=== PATIENT | male | born 1940 | race Hispanic/Latino ===

== ENCOUNTER 2020-07-27 11:47 | Inpatient (IN) | payer MEDICARE ==
[~2020-07-27] VITALS: Ht 172.7 cm; Wt 89.4 kg
[2020-07-27] MEDS ORDERED: FUROSEMIDE INJ 10 MG/ML 4 ML VIAL IV ONE (12:15)
[2020-07-27] MEDS ORDERED: ASPIRIN 81 MG CHEW TAB PO ONE (12:15)
[2020-07-27 12:25] LABS: BASOPHILS % 0.6 % (0.0-1.0); EOSINOPHILS # (AUTO) 0.2 (0.0-0.4); EOSINOPHILS % 2.3 % (0.0-6.0); HEMATOCRIT 28.7 % (38.2-49.6); HEMOGLOBIN 8.8 g/dL (14.0-18.0); LYMPHOCYTES # (AUTO) 0.8 (1.0-3.2); LYMPHOCYTES % 11.9 % (18.0-39.1); MEAN CORPUSCULAR HEMOGLOBIN 29.6 pg (28-32); MEAN CORPUSCULAR HGB CONC 30.7 g/dL (31-35); MEAN CORPUSCULAR VOLUME 96.6 fL (81-99); MONOCYTES # (AUTO) 0.6 (0.2-0.8); MONOCYTES % 8.3 % (4.4-11.3); NEUTROPHILS % 75.5 % (38.7-80.0); PLATELET COUNT 214 x10e3/uL (140-360); RED BLOOD COUNT 2.97 x10e6/uL (4.3-5.7); RED CELL DISTRIBUTION WIDTH 13.5 % (11.7-14.4)
[2020-07-27] MEDS ORDERED: AMLODIPINE BESY10 MG PO (12:25)
[2020-07-27] MEDS ORDERED: LOW DOSE ASPIRI81 MG PO (12:25)
[2020-07-27] MEDS ORDERED: CINNAMON500 MG PO (12:25)
[2020-07-27] MEDS ORDERED: OMEGA-31000 MG PO (12:25)
[2020-07-27] MEDS ORDERED: MICARDIS40 MG PO (12:25)
[2020-07-27] MEDS ORDERED: HYDRALAZINE HCL25 MG PO (12:25)
[2020-07-27] MEDS ORDERED: GLIPIZIDE ER5 MG PO (12:25)
[2020-07-27] MEDS ORDERED: ATORVASTATIN CA10 MG PO (12:25)
[2020-07-27 12:42] LABS: ALBUMIN 3.5 g/dL (3.5-5.0); ALBUMIN/GLOBULIN RATIO 1.3 (0.8-2.0); ANION GAP 13.8 mmol/L (8-16); CALCIUM 8.1 mg/dL (8.4-10.2); CREATININE, SERUM 3.54 mg/dL (0.72-1.25); POTASSIUM 4.8 mmol/L (3.5-5.1)
[2020-07-27 14:11] LABS: CREATINE KINASE MB 3.3 ng/mL (0-5.0)
[2020-07-27] MEDS: FUROSEMIDE INJ 10 MG/ML 4 ML VIAL IV SCH (21:07)
[2020-07-27 21:44] LABS: CREATINE KINASE MB 3.7 ng/mL (0-5.0)
[2020-07-27 23:45] VITALS: BP 167/82
[2020-07-28] VITALS (7 sets, daily range): BP systolic 134–169; BP diastolic 63–82
[2020-07-28 05:55] LABS: BASOPHILS % 0.7 % (0.0-1.0); EOSINOPHILS # (AUTO) 0.2 (0.0-0.4); EOSINOPHILS % 2.6 % (0.0-6.0); HEMATOCRIT 27.6 % (38.2-49.6); HEMOGLOBIN 8.6 g/dL (14.0-18.0); LYMPHOCYTES # (AUTO) 0.9 (1.0-3.2); LYMPHOCYTES % 14.6 % (18.0-39.1); MEAN CORPUSCULAR HEMOGLOBIN 29.9 pg (28-32); MEAN CORPUSCULAR HGB CONC 31.2 g/dL (31-35); MEAN CORPUSCULAR VOLUME 95.8 fL (81-99); MONOCYTES # (AUTO) 0.8 (0.2-0.8); MONOCYTES % 12.3 % (4.4-11.3); NEUTROPHILS # (AUTO) 4.3 (2.1-6.9); NEUTROPHILS % 69.5 % (38.7-80.0); PLATELET COUNT 205 x10e3/uL (140-360); RED BLOOD COUNT 2.88 x10e6/uL (4.3-5.7); RED CELL DISTRIBUTION WIDTH 13.4 % (11.7-14.4)
[2020-07-28 06:17] LABS: ALBUMIN 3.3 g/dL (3.5-5.0); ALBUMIN/GLOBULIN RATIO 1.2 (0.8-2.0); ANION GAP 13.4 mmol/L (8-16); CALCIUM 8.1 mg/dL (8.4-10.2); CHOL/HDL RATIO 2.2 (3.9-4.7); CREATININE, SERUM 3.22 mg/dL (0.72-1.25); POTASSIUM 4.4 mmol/L (3.5-5.1)
[2020-07-28 06:39] LABS: THYROID STIMULATING HORMONE 0.914 uIU/mL (0.350-4.940)
[2020-07-28 06:41] LABS: CREATINE KINASE MB 3.4 ng/mL (0-5.0)
[2020-07-28] MEDS: FUROSEMIDE INJ 10 MG/ML 4 ML VIAL IV SCH ×2 (09:21→17:11)
[2020-07-28] MEDS: ASPIRIN 81 MG ENTERIC COATED PO SCH (10:00)
[2020-07-28] MEDS: METOPROLOL TARTRATE 25 MG TAB PO SCH ×2 (10:00→17:12)
[2020-07-28] MEDS ORDERED: DEXTROSE 50% SYRINGE 50 ML IV PRN (11:30)
[2020-07-28] MEDS ORDERED: ATORVASTATIN 10 MG TAB PO SCH (21:00)
[2020-07-29] VITALS: BP 148/77
[2020-07-29 04:00] VITALS: BP 158/73
[2020-07-29 05:33] LABS: BASOPHILS % 0.7 % (0.0-1.0); EOSINOPHILS # (AUTO) 0.2 (0.0-0.4); EOSINOPHILS % 3.3 % (0.0-6.0); HEMATOCRIT 25.9 % (38.2-49.6); HEMOGLOBIN 8.1 g/dL (14.0-18.0); LYMPHOCYTES # (AUTO) 1.1 (1.0-3.2); LYMPHOCYTES % 18.9 % (18.0-39.1); MEAN CORPUSCULAR HEMOGLOBIN 29.7 pg (28-32); MEAN CORPUSCULAR HGB CONC 31.3 g/dL (31-35); MEAN CORPUSCULAR VOLUME 94.9 fL (81-99); MONOCYTES # (AUTO) 0.7 (0.2-0.8); MONOCYTES % 12.5 % (4.4-11.3); NEUTROPHILS # (AUTO) 3.7 (2.1-6.9); NEUTROPHILS % 64.4 % (38.7-80.0); PLATELET COUNT 195 x10e3/uL (140-360); RED BLOOD COUNT 2.73 x10e6/uL (4.3-5.7); RED CELL DISTRIBUTION WIDTH 13.3 % (11.7-14.4)
[2020-07-29 05:50] LABS: ALBUMIN/GLOBULIN RATIO 1.2 (0.8-2.0); ANION GAP 12.2 mmol/L (8-16); CALCIUM 7.9 mg/dL (8.4-10.2); CREATININE, SERUM 3.32 mg/dL (0.72-1.25); POTASSIUM 4.2 mmol/L (3.5-5.1)
[2020-07-29 07:32] VITALS: BP 168/73
[2020-07-29 07:42] VITALS: BP 168/73
[2020-07-29] MEDS: METOPROLOL TARTRATE 25 MG TAB PO SCH (10:20)
[2020-07-29] MEDS: FUROSEMIDE INJ 10 MG/ML 4 ML VIAL IV SCH (10:20)
[2020-07-29] MEDS: ASPIRIN 81 MG ENTERIC COATED PO SCH (10:20)
[2020-07-29 11:37] VITALS: BP 137/101
[2020-07-29] MEDS ORDERED: HYDRALAZINE HCL 25 MG TAB PO SCH (17:00)
== END 2020-07-29 13:20 | disposition home or self-care (01) | DRG 291 ==
LOC: ER 12:02 → ERHOLD 15:04 → MED/SURG 23:38
DX: I13.0 Hypertensive heart and chronic kidney disease with heart failure and stage 1 through stage 4 chronic kidney disease, or unspecified chronic kidney disease (principal); I50.33 Acute on chronic diastolic (congestive) heart failure; N17.9 Acute kidney failure, unspecified; N18.9 Chronic kidney disease, unspecified; E11.22 Type 2 diabetes mellitus with diabetic chronic kidney disease; N18.30 Chronic kidney disease, stage 3 unspecified; E11.21 Type 2 diabetes mellitus with diabetic nephropathy; I25.10 Atherosclerotic heart disease of native coronary artery without angina pectoris; Z95.1 Presence of aortocoronary bypass graft; Z20.822 Contact with and (suspected) exposure to COVID-19
CPT/HCPCS: 36415; 71045; 80053; 80061; 82550; 82553; 82948; 83880; 84443; 84484; 85025; 93005; 93306; 99285; J1940; U0002

== ENCOUNTER 2021-01-03 14:59 | Inpatient (IN) | payer MEDICARE, OTHER ==
[~2021-01-03] VITALS: Ht 172.7 cm; Wt 89.4 kg
[~2021-01-03 14:59] MED LIST: AMLODIPINE BESY10 MG PO; ATORVASTATIN CA10 MG PO; CINNAMON500 MG PO; GLIPIZIDE ER5 MG PO; HYDRALAZINE HCL25 MG PO; LOW DOSE ASPIRI81 MG PO; MICARDIS40 MG PO; OMEGA-31000 MG PO
[2021-01-03] MEDS ORDERED: DEXTROSE 50% SYRINGE 50 ML IV STA (15:16)
[2021-01-03] MEDS ORDERED: DEXTROSE 50% SYRINGE 50 ML IV ONE (15:25)
[2021-01-03] MEDS ORDERED: DEXTROSE 5% 1,000 ML IV ONE (15:30)
[2021-01-03 15:32] LABS: BASOPHILS % 0.5 % (0.0-1.0); EOSINOPHILS % 0.3 % (0.0-6.0); HEMATOCRIT 28.8 % (38.2-49.6); HEMOGLOBIN 8.8 g/dL (14.0-18.0); LYMPHOCYTES # (AUTO) 0.4 (1.0-3.2); LYMPHOCYTES % 6.8 % (18.0-39.1); MEAN CORPUSCULAR HEMOGLOBIN 27.9 pg (28-32); MEAN CORPUSCULAR HGB CONC 30.6 g/dL (31-35); MEAN CORPUSCULAR VOLUME 91.4 fL (81-99); MONOCYTES # (AUTO) 0.5 (0.2-0.8); MONOCYTES % 8.6 % (4.4-11.3); NEUTROPHILS # (AUTO) 4.8 (2.1-6.9); NEUTROPHILS % 83.1 % (38.7-80.0); PLATELET COUNT 201 x10e3/uL (140-360); RED BLOOD COUNT 3.15 x10e6/uL (4.3-5.7)
[2021-01-03] MEDS: OCTREOTIDE ACETATE 0.05 MG/ML AMP SQ SCH ×2 (15:38→18:00)
[2021-01-03 15:47] LABS: ALBUMIN 4.1 g/dL (3.5-5.0); ALBUMIN/GLOBULIN RATIO 1.5 (0.8-2.0); ANION GAP 16.8 mmol/L (8-16); CALCIUM 8.4 mg/dL (8.4-10.2); CREATININE, SERUM 3.67 mg/dL (0.72-1.25); MAGNESIUM 2.2 MG/DL (1.3-2.1); POTASSIUM 3.8 mmol/L (3.5-5.1)
[2021-01-03 15:53] LABS: CREATINE KINASE MB 4.5 ng/mL (0-5.0)
[2021-01-03 16:09] LABS: INR 1.06; PROTHROMBIN TIME 14.4 seconds (11.9-14.5)
[2021-01-03 16:10] LABS: PARTIAL THROMBOPLASTIN TIME 36.4 seconds (23.8-35.5)
[2021-01-03 16:59] LABS: CLARITY,URINE CLEAR (CLEAR); COLOR,URINE YELLOW (YELLOW); KETONES,URINE NEGATIVE (NEGATIVE); LEUKOCYTE ESTERASE ,URINE NEGATIVE (NEGATIVE); NITRITE,URINE NEGATIVE (NEGATIVE); PROTEIN,URINE DIPSTICK 2+ (NEGATIVE); URINE UROBILINOGEN 0.2 mg/dL (0.2 - 1)
[2021-01-03 17:08] LABS: BACTERIA,URINE MODERATE /HPF; EPITHELIAL CELLS,URINE FEW /LPF; WBC,URINE (MAN) 0-5 /HPF (0-5)
[2021-01-03] MEDS ORDERED: DEXTROSE 50% SYRINGE 50 ML IV PRN (17:30)
[2021-01-03] MEDS ORDERED: ONDANSETRON HCL INJ 2MG/ML 2ML 2 MG/ML VIAL IV PRN (17:30)
[2021-01-03] MEDS: FAMOTIDINE 20 MG/2 ML VIAL IV SCH (17:34)
[2021-01-03] MEDS ORDERED: FUROSEMIDE INJ 10 MG/ML 4 ML VIAL IV ONE (19:00)
[2021-01-03 20:04] VITALS: BP 143/78
[2021-01-03] MEDS ORDERED: LASIX40 MG PO (20:52)
[2021-01-04] VITALS (13 sets, daily range): BP systolic 125–162; BP diastolic 61–77
[2021-01-04] MEDS: CEFTRIAXONE 1 GM in SODIUM CHLORIDE 0.9% 50ML 50 ML IV SCH ×2 (00:44→20:30)
[2021-01-04] MEDS: FAMOTIDINE 20 MG/2 ML VIAL IV SCH ×2 (05:17→17:30)
[2021-01-04] MEDS: OCTREOTIDE ACETATE 0.05 MG/ML AMP SQ SCH ×5 (05:17→23:03)
[2021-01-04 05:33] LABS: BASOPHILS % 0.6 % (0.0-1.0); EOSINOPHILS # (AUTO) 0.1 (0.0-0.4); EOSINOPHILS % 1.4 % (0.0-6.0); HEMATOCRIT 25.6 % (38.2-49.6); HEMOGLOBIN 8.1 g/dL (14.0-18.0); LYMPHOCYTES # (AUTO) 0.4 (1.0-3.2); LYMPHOCYTES % 8.4 % (18.0-39.1); MEAN CORPUSCULAR HEMOGLOBIN 29.1 pg (28-32); MEAN CORPUSCULAR HGB CONC 31.6 g/dL (31-35); MEAN CORPUSCULAR VOLUME 92.1 fL (81-99); MONOCYTES # (AUTO) 0.6 (0.2-0.8); MONOCYTES % 10.8 % (4.4-11.3); PLATELET COUNT 178 x10e3/uL (140-360); RED BLOOD COUNT 2.78 x10e6/uL (4.3-5.7); RED CELL DISTRIBUTION WIDTH 13.7 % (11.7-14.4)
[2021-01-04 05:47] LABS: ALBUMIN 3.4 g/dL (3.5-5.0); ALBUMIN/GLOBULIN RATIO 1.3 (0.8-2.0); ANION GAP 12.9 mmol/L (8-16); CREATININE, SERUM 3.68 mg/dL (0.72-1.25); POTASSIUM 3.9 mmol/L (3.5-5.1)
[2021-01-04] MEDS ORDERED: ONDANSETRON HCL 4 MG ORAL DISINTEGRATING TAB PO PRN (08:00)
[2021-01-04] MEDS: AMLODIPINE BESYLATE 10 MG TAB PO SCH (09:00)
[2021-01-04] MEDS: ASPIRIN 81 MG ENTERIC COATED PO SCH (09:00)
[2021-01-04] MEDS: FUROSEMIDE INJ 10 MG/ML 4 ML VIAL IV SCH ×2 (09:00→20:30)
[2021-01-04] MEDS: HYDRALAZINE HCL 25 MG TAB PO SCH ×2 (09:00→17:30)
[2021-01-04 11:56] LABS: CREATINE KINASE MB 3.7 ng/mL (0-5.0)
[2021-01-04] MEDS: ATORVASTATIN 10 MG TAB PO SCH (20:30)
[2021-01-05] VITALS (8 sets, daily range): BP systolic 134–161; BP diastolic 60–75
[2021-01-05 05:08] LABS: BASOPHILS % 0.6 % (0.0-1.0); EOSINOPHILS # (AUTO) 0.1 (0.0-0.4); EOSINOPHILS % 2.3 % (0.0-6.0); HEMATOCRIT 26.3 % (38.2-49.6); LYMPHOCYTES # (AUTO) 0.6 (1.0-3.2); LYMPHOCYTES % 10.9 % (18.0-39.1); MEAN CORPUSCULAR HEMOGLOBIN 28.2 pg (28-32); MEAN CORPUSCULAR HGB CONC 30.4 g/dL (31-35); MEAN CORPUSCULAR VOLUME 92.6 fL (81-99); MONOCYTES # (AUTO) 0.6 (0.2-0.8); MONOCYTES % 10.9 % (4.4-11.3); NEUTROPHILS # (AUTO) 3.9 (2.1-6.9); NEUTROPHILS % 74.9 % (38.7-80.0); PLATELET COUNT 164 x10e3/uL (140-360); RED BLOOD COUNT 2.84 x10e6/uL (4.3-5.7); RED CELL DISTRIBUTION WIDTH 13.6 % (11.7-14.4)
[2021-01-05 05:28] LABS: ALBUMIN 3.4 g/dL (3.5-5.0); ALBUMIN/GLOBULIN RATIO 1.3 (0.8-2.0); ANION GAP 13.4 mmol/L (8-16); CALCIUM 7.7 mg/dL (8.4-10.2); CREATININE, SERUM 3.76 mg/dL (0.72-1.25); POTASSIUM 4.4 mmol/L (3.5-5.1)
[2021-01-05] MEDS: FAMOTIDINE 20 MG/2 ML VIAL IV SCH ×2 (05:43→16:42)
[2021-01-05] MEDS: OCTREOTIDE ACETATE 0.05 MG/ML AMP SQ SCH ×3 (05:43→16:43)
[2021-01-05] MEDS: HYDRALAZINE HCL 25 MG TAB PO SCH ×2 (09:15→16:42)
[2021-01-05] MEDS: FUROSEMIDE INJ 10 MG/ML 4 ML VIAL IV SCH ×2 (09:15→21:19)
[2021-01-05] MEDS: AMLODIPINE BESYLATE 10 MG TAB PO SCH (09:15)
[2021-01-05] MEDS: ASPIRIN 81 MG ENTERIC COATED PO SCH (09:15)
[2021-01-05] MEDS: CEFTRIAXONE 1 GM in SODIUM CHLORIDE 0.9% 50ML 50 ML IV SCH (21:19)
[2021-01-05] MEDS: ATORVASTATIN 10 MG TAB PO SCH (21:19)
[2021-01-06] VITALS (9 sets, daily range): BP systolic 131–157; BP diastolic 63–81
[2021-01-06] MEDS: OCTREOTIDE ACETATE 0.05 MG/ML AMP SQ SCH ×4 (05:07→18:00)
[2021-01-06] MEDS: FAMOTIDINE 20 MG/2 ML VIAL IV SCH ×2 (05:27→16:37)
[2021-01-06] MEDS: ASPIRIN 81 MG ENTERIC COATED PO SCH (09:00)
[2021-01-06] MEDS: FUROSEMIDE INJ 10 MG/ML 4 ML VIAL IV SCH (09:00)
[2021-01-06] MEDS: AMLODIPINE BESYLATE 10 MG TAB PO SCH (09:00)
[2021-01-06] MEDS: HYDRALAZINE HCL 25 MG TAB PO SCH ×2 (09:00→16:37)
[2021-01-06 19:26] LABS: ANION GAP 14.2 mmol/L (8-16); CALCIUM 7.8 mg/dL (8.4-10.2); CREATININE, SERUM 4.17 mg/dL (0.72-1.25); POTASSIUM 4.2 mmol/L (3.5-5.1)
[2021-01-06] MEDS: ATORVASTATIN 10 MG TAB PO SCH (20:51)
[2021-01-06] MEDS: CEFTRIAXONE 1 GM in SODIUM CHLORIDE 0.9% 50ML 50 ML IV SCH (20:51)
[2021-01-07] MEDS: OCTREOTIDE ACETATE 0.05 MG/ML AMP SQ SCH ×3 (01:17→12:00)
[2021-01-07] MEDS: FAMOTIDINE 20 MG/2 ML VIAL IV SCH (05:30)
[2021-01-07 05:34] LABS: BASOPHILS % 0.3 % (0.0-1.0); EOSINOPHILS % 0.2 % (0.0-6.0); HEMATOCRIT 25.1 % (38.2-49.6); HEMOGLOBIN 7.7 g/dL (14.0-18.0); LYMPHOCYTES # (AUTO) 0.8 (1.0-3.2); MEAN CORPUSCULAR HEMOGLOBIN 27.8 pg (28-32); MEAN CORPUSCULAR HGB CONC 30.7 g/dL (31-35); MEAN CORPUSCULAR VOLUME 90.6 fL (81-99); MONOCYTES # (AUTO) 0.7 (0.2-0.8); MONOCYTES % 7.2 % (4.4-11.3); NEUTROPHILS # (AUTO) 8.2 (2.1-6.9); NEUTROPHILS % 83.9 % (38.7-80.0); PLATELET COUNT 161 x10e3/uL (140-360); RED BLOOD COUNT 2.77 x10e6/uL (4.3-5.7); RED CELL DISTRIBUTION WIDTH 13.7 % (11.7-14.4)
[2021-01-07] MEDS ORDERED: FUROSEMIDE 40 MG TAB PO SCH (06:00)
[2021-01-07 06:02] LABS: ALBUMIN 3.4 g/dL (3.5-5.0); ALBUMIN/GLOBULIN RATIO 1.3 (0.8-2.0); ANION GAP 15.4 mmol/L (8-16); CALCIUM 7.7 mg/dL (8.4-10.2); CREATININE, SERUM 4.23 mg/dL (0.72-1.25); POTASSIUM 4.4 mmol/L (3.5-5.1)
[2021-01-07 06:15] VITALS: BP 130/82
[2021-01-07 07:55] VITALS: BP 113/58
[2021-01-07 08:37] VITALS: BP 113/58
[2021-01-07] MEDS: AMLODIPINE BESYLATE 10 MG TAB PO SCH (09:00)
[2021-01-07] MEDS: ASPIRIN 81 MG ENTERIC COATED PO SCH (09:00)
[2021-01-07] MEDS: HYDRALAZINE HCL 25 MG TAB PO SCH (09:00)
[2021-01-07 11:30] VITALS: BP 111/57
[2021-01-07] MEDS ORDERED: GLIPIZIDE5 MG PO (12:57)
[2021-01-07] MEDS ORDERED: LASIX40 MG PO (15:23)
== END 2021-01-07 15:34 | disposition home or self-care (01) | DRG 291 ==
LOC: ER 16:32 → ERHOLD 17:22 → MED/SURG2 20:07
PROVIDERS: ADMIT Internal Medicine; ATTEND Internal Medicine
DX: I13.2 Hypertensive heart and chronic kidney disease with heart failure and with stage 5 chronic kidney disease, or end stage renal disease (principal); I50.33 Acute on chronic diastolic (congestive) heart failure; N18.5 Chronic kidney disease, stage 5; N17.9 Acute kidney failure, unspecified; D68.9 Coagulation defect, unspecified; E11.22 Type 2 diabetes mellitus with diabetic chronic kidney disease; E11.649 Type 2 diabetes mellitus with hypoglycemia without coma; Z20.822 Contact with and (suspected) exposure to COVID-19; E78.5 Hyperlipidemia, unspecified; R33.9 Retention of urine, unspecified; N05.9 Unspecified nephritic syndrome with unspecified morphologic changes; R31.9 Hematuria, unspecified; Z95.1 Presence of aortocoronary bypass graft; I27.20 Pulmonary hypertension, unspecified; W19.XXXA Unspecified fall, initial encounter; Y92.239 Unspecified place in hospital as the place of occurrence of the external cause; T38.3X5A Adverse effect of insulin and oral hypoglycemic [antidiabetic] drugs, initial encounter
CPT/HCPCS: 36415; 70450; 71045; 72125; 76770; 80048; 80053; 81001; 82550; 82553; 82948; 83605; 83735; 83880; 84484; 85025; 85610; 85730; 87040; 87086; 93005; 97139; 99251; 99284; J0696; J1940; J2354; J7070; J7799; U0002

== ENCOUNTER 2021-03-27 21:19 | Inpatient (IN) | payer MEDICARE ==
[~2021-03-27] VITALS: Ht 172.7 cm; Wt 89.4 kg
[2021-03-27 19:00] VITALS: BP 124/67
[~2021-03-27 21:19] MED LIST changes: +GLIPIZIDE5 MG PO; +LASIX40 MG PO
[2021-03-27 21:56] LABS: BASOPHILS # (AUTO) 0.1 (0.0-0.1); BASOPHILS % 0.8 % (0.0-1.0); EOSINOPHILS # (AUTO) 0.1 (0.0-0.4); EOSINOPHILS % 2.2 % (0.0-6.0); HEMATOCRIT 23.6 % (38.2-49.6); HEMOGLOBIN 7.4 g/dL (14.0-18.0); LYMPHOCYTES # (AUTO) 1.2 (1.0-3.2); LYMPHOCYTES % 18.5 % (18.0-39.1); MEAN CORPUSCULAR HEMOGLOBIN 28.7 pg (28-32); MEAN CORPUSCULAR HGB CONC 31.4 g/dL (31-35); MEAN CORPUSCULAR VOLUME 91.5 fL (81-99); MONOCYTES # (AUTO) 0.5 (0.2-0.8); MONOCYTES % 8.3 % (4.4-11.3); NEUTROPHILS # (AUTO) 4.5 (2.1-6.9); NEUTROPHILS % 69.9 % (38.7-80.0); PLATELET COUNT 222 x10e3/uL (140-360); RED BLOOD COUNT 2.58 x10e6/uL (4.3-5.7); RED CELL DISTRIBUTION WIDTH 14.6 % (11.7-14.4)
[2021-03-27 22:13] LABS: ALBUMIN/GLOBULIN RATIO 1.4 (0.8-2.0); ANION GAP 24.2 mmol/L (8-16); CALCIUM 8.6 mg/dL (8.4-10.2); CREATINE KINASE MB 3.1 ng/mL (0-5.0); CREATININE, SERUM 5.45 mg/dL (0.72-1.25); POTASSIUM 4.2 mmol/L (3.5-5.1)
[2021-03-27] MEDS ORDERED: SODIUM BICARBONATE 8.4% INJ 50 ML SYR IV STA (22:50)
[2021-03-27] MEDS: FUROSEMIDE INJ 10 MG/ML 4 ML VIAL IV SCH (23:34)
[2021-03-28] VITALS (10 sets, daily range): BP systolic 106–132; BP diastolic 49–64
[2021-03-28] MEDS ORDERED: ALLOPURINOL100 MG PO (01:06)
[2021-03-28] MEDS ORDERED: CALCITRIOL0.25 MCG PO (01:06)
[2021-03-28 08:23] LABS: BASOPHILS % 0.6 % (0.0-1.0); EOSINOPHILS % 1.1 % (0.0-6.0); LYMPHOCYTES # (AUTO) 0.3 (1.0-3.2); LYMPHOCYTES % 9.6 % (18.0-39.1); MEAN CORPUSCULAR HEMOGLOBIN 27.8 pg (28-32); MEAN CORPUSCULAR HGB CONC 30.7 g/dL (31-35); MEAN CORPUSCULAR VOLUME 90.6 fL (81-99); MONOCYTES # (AUTO) 0.3 (0.2-0.8); MONOCYTES % 8.5 % (4.4-11.3); NEUTROPHILS # (AUTO) 2.8 (2.1-6.9); NEUTROPHILS % 79.9 % (38.7-80.0); PLATELET COUNT 182 x10e3/uL (140-360); RED BLOOD COUNT 2.34 x10e6/uL (4.3-5.7); RED CELL DISTRIBUTION WIDTH 14.7 % (11.7-14.4)
[2021-03-28 08:38] LABS: HEMATOCRIT 21.2 % (38.2-49.6); HEMOGLOBIN 6.5 g/dL (14.0-18.0)
[2021-03-28 08:52] LABS: ALBUMIN 3.5 g/dL (3.5-5.0); ALBUMIN/GLOBULIN RATIO 1.4 (0.8-2.0); ANION GAP 17.7 mmol/L (8-16); CALCIUM 8.5 mg/dL (8.4-10.2); CREATININE, SERUM 5.62 mg/dL (0.72-1.25); MAGNESIUM 2.3 MG/DL (1.3-2.1); PHOSPHORUS 5.6 MG/DL (2.3-4.7); POTASSIUM 3.7 mmol/L (3.5-5.1)
[2021-03-28 09:00] LABS: CREATINE KINASE MB 3.3 ng/mL (0-5.0)
[2021-03-28] MEDS: FUROSEMIDE INJ 10 MG/ML 4 ML VIAL IV SCH ×3 (09:00→21:24)
[2021-03-28] MEDS ORDERED: DEXTROSE 50% SYRINGE 50 ML IV PRN (09:45)
[2021-03-28] MEDS ORDERED: SODIUM CHLORIDE 0.9% 250ML 250 ML IV NR (10:15)
[2021-03-28] MEDS: INSULIN REGULAR, HUMAN 100 UNIT/1 ML SQ SCH ×3 (11:30→21:26)
[2021-03-28] MEDS: SODIUM BICARBONATE 650 MG TAB PO SCH ×2 (13:18→18:57)
[2021-03-28 15:32] LABS: INR 1.16
[2021-03-28 15:35] LABS: ABG HCO3 20 mmol/L (22-26); ABG PCO2 34 mmHg (35-45); ABG PH 7.37 (7.35-7.45); ABG PO2 70 mmHg (80-105); ABG TCO2 21
[2021-03-28 15:57] LABS: CREATINE KINASE MB 4.6 ng/mL (0-5.0)
[2021-03-28 16:17] LABS: CHOL/HDL RATIO 2.4 (3.9-4.7)
[2021-03-28 16:36] LABS: FERRITIN 60.67 ng/mL (21.81-274.66)
[2021-03-28] MEDS ORDERED: SODIUM CHLORIDE 0.9% 250ML 250 ML ONE (17:12)
[2021-03-29] VITALS (8 sets, daily range): BP systolic 117–145; BP diastolic 49–72
[2021-03-29 00:15] LABS: CLARITY,URINE CLEAR (CLEAR); COLOR,URINE YELLOW (YELLOW); KETONES,URINE NEGATIVE (NEGATIVE); LEUKOCYTE ESTERASE ,URINE NEGATIVE (NEGATIVE); NITRITE,URINE NEGATIVE (NEGATIVE); PROTEIN,URINE DIPSTICK NEGATIVE (NEGATIVE); URINE UROBILINOGEN 0.2 mg/dL (0.2 - 1)
[2021-03-29 00:21] LABS: BACTERIA,URINE FEW /HPF; EPITHELIAL CELLS,URINE FEW /LPF; RBC,URINE 0-5 /HPF (0-5); WBC,URINE (MAN) 0-5 /HPF (0-5)
[2021-03-29 05:04] LABS: BASOPHILS % 0.6 % (0.0-1.0); EOSINOPHILS # (AUTO) 0.2 (0.0-0.4); EOSINOPHILS % 3.1 % (0.0-6.0); HEMATOCRIT 24.7 % (38.2-49.6); HEMOGLOBIN 8.1 g/dL (14.0-18.0); LYMPHOCYTES # (AUTO) 0.6 (1.0-3.2); LYMPHOCYTES % 12.7 % (18.0-39.1); MEAN CORPUSCULAR HEMOGLOBIN 28.8 pg (28-32); MEAN CORPUSCULAR HGB CONC 32.8 g/dL (31-35); MEAN CORPUSCULAR VOLUME 87.9 fL (81-99); MONOCYTES # (AUTO) 0.5 (0.2-0.8); MONOCYTES % 10.4 % (4.4-11.3); NEUTROPHILS # (AUTO) 3.5 (2.1-6.9); NEUTROPHILS % 72.8 % (38.7-80.0); PLATELET COUNT 189 x10e3/uL (140-360); RED BLOOD COUNT 2.81 x10e6/uL (4.3-5.7); RED CELL DISTRIBUTION WIDTH 14.8 % (11.7-14.4)
[2021-03-29 05:24] LABS: ALBUMIN 3.5 g/dL (3.5-5.0); ALBUMIN/GLOBULIN RATIO 1.3 (0.8-2.0); ANION GAP 17.9 mmol/L (8-16); CALCIUM 8.3 mg/dL (8.4-10.2); CREATININE, SERUM 5.5 mg/dL (0.72-1.25); POTASSIUM 3.9 mmol/L (3.5-5.1)
[2021-03-29] MEDS: INSULIN REGULAR, HUMAN 100 UNIT/1 ML SQ SCH ×4 (07:30→22:24)
[2021-03-29] MEDS ORDERED: METOLAZONE 5 MG TAB PO ONE (09:00)
[2021-03-29] MEDS: SODIUM BICARBONATE 650 MG TAB PO SCH ×2 (09:53→17:45)
[2021-03-29] MEDS: FUROSEMIDE INJ 10 MG/ML 4 ML VIAL IV SCH ×2 (09:53→22:31)
[2021-03-29 14:50] LABS: CREATININE,URINE RANDOM 49.41 mg/dL (63-166); TOTAL PROTEIN, URINE 12.3 mg/dL (1-14)
[2021-03-29] MEDS ORDERED: TELMISARTAN 40 MG TAB PO SCH (17:00)
[2021-03-29] MEDS: HYDRALAZINE HCL 25 MG TAB PO SCH (17:45)
[2021-03-30] VITALS (8 sets, daily range): BP systolic 110–169; BP diastolic 53–95
[2021-03-30 05:46] LABS: ANION GAP 14.9 mmol/L (8-16); CALCIUM 8.8 mg/dL (8.4-10.2); CREATININE, SERUM 5.23 mg/dL (0.72-1.25); POTASSIUM 3.9 mmol/L (3.5-5.1)
[2021-03-30] MEDS: INSULIN REGULAR, HUMAN 100 UNIT/1 ML SQ SCH ×4 (07:30→21:00)
[2021-03-30] MEDS ORDERED: AMLODIPINE BESYLATE 5 MG TAB PO SCH (09:00)
[2021-03-30] MEDS: NON-FORMULARY MEDICATION (Cinnamon Bark (Cinnamon) 1,000 MG) PO SCH (09:00)
[2021-03-30] MEDS: OMEGA 3 POLYUNSAT FATTY ACIDS 1000 MG SOFTGEL PO SCH (09:02)
[2021-03-30] MEDS: HYDRALAZINE HCL 25 MG TAB PO SCH ×2 (09:02→16:11)
[2021-03-30] MEDS: CALCITRIOL 0.25 MCG CAP PO SCH (09:02)
[2021-03-30] MEDS: ASPIRIN 81 MG ENTERIC COATED PO SCH (09:02)
[2021-03-30] MEDS: AMLODIPINE BESYLATE 10 MG TAB PO SCH (09:02)
[2021-03-30] MEDS: ALLOPURINOL 100 MG TAB PO SCH (09:02)
[2021-03-30] MEDS: SODIUM BICARBONATE 650 MG TAB PO SCH ×2 (09:02→16:11)
[2021-03-30] MEDS: FUROSEMIDE INJ 10 MG/ML 4 ML VIAL IV SCH ×2 (09:06→22:00)
[2021-03-31] VITALS (8 sets, daily range): BP systolic 126–145; BP diastolic 59–68
[2021-03-31 06:24] LABS: ANION GAP 15.7 mmol/L (8-16); CALCIUM 8.6 mg/dL (8.4-10.2); CREATININE, SERUM 4.98 mg/dL (0.72-1.25); POTASSIUM 3.7 mmol/L (3.5-5.1)
[2021-03-31] MEDS: INSULIN REGULAR, HUMAN 100 UNIT/1 ML SQ SCH ×4 (07:30→21:00)
[2021-03-31] MEDS: NON-FORMULARY MEDICATION (Cinnamon Bark (Cinnamon) 1,000 MG) PO SCH (09:00)
[2021-03-31] MEDS: FUROSEMIDE INJ 10 MG/ML 4 ML VIAL IV SCH ×2 (09:09→22:00)
[2021-03-31] MEDS: HYDRALAZINE HCL 25 MG TAB PO SCH ×2 (09:09→18:28)
[2021-03-31] MEDS: ASPIRIN 81 MG ENTERIC COATED PO SCH (09:09)
[2021-03-31] MEDS: OMEGA 3 POLYUNSAT FATTY ACIDS 1000 MG SOFTGEL PO SCH (09:10)
[2021-03-31] MEDS: CALCITRIOL 0.25 MCG CAP PO SCH (09:10)
[2021-03-31] MEDS: SODIUM BICARBONATE 650 MG TAB PO SCH ×2 (09:10→18:28)
[2021-03-31] MEDS: ALLOPURINOL 100 MG TAB PO SCH (09:10)
[2021-03-31] MEDS: AMLODIPINE BESYLATE 10 MG TAB PO SCH (09:10)
[2021-04-01] VITALS: BP 117/55
[2021-04-01 04:00] VITALS: BP 139/63
[2021-04-01 05:58] LABS: ANION GAP 17.7 mmol/L (8-16); CALCIUM 8.8 mg/dL (8.4-10.2); CREATININE, SERUM 5.03 mg/dL (0.72-1.25); POTASSIUM 3.7 mmol/L (3.5-5.1)
[2021-04-01] MEDS: FUROSEMIDE INJ 10 MG/ML 4 ML VIAL IV SCH (08:42)
[2021-04-01] MEDS: HYDRALAZINE HCL 25 MG TAB PO SCH (08:42)
[2021-04-01] MEDS: ASPIRIN 81 MG ENTERIC COATED PO SCH (08:42)
[2021-04-01] MEDS: AMLODIPINE BESYLATE 10 MG TAB PO SCH (08:42)
[2021-04-01] MEDS: OMEGA 3 POLYUNSAT FATTY ACIDS 1000 MG SOFTGEL PO SCH (08:43)
[2021-04-01] MEDS: SODIUM BICARBONATE 650 MG TAB PO SCH (08:43)
[2021-04-01] MEDS: CALCITRIOL 0.25 MCG CAP PO SCH (08:43)
[2021-04-01] MEDS: ALLOPURINOL 100 MG TAB PO SCH (08:43)
[2021-04-01 08:47] VITALS: BP 143/73
[2021-04-01 10:30] VITALS: BP 200/180
[2021-04-01 12:14] VITALS: BP 102/51
== END 2021-04-01 14:14 | disposition home or self-care (01) | DRG 291 ==
LOC: ER 21:23 → ERHOLD 23:18 → MED/SURG3 03-28 00:13
PROVIDERS: ADMIT Internal Medicine; ATTEND Internal Medicine
PROC: 30233N1 Transfusion of Nonautologous Red Blood Cells into Peripheral Vein, Percutaneous Approach (ICD-10-PCS; principal; 2021-03-28)
DX: I13.2 Hypertensive heart and chronic kidney disease with heart failure and with stage 5 chronic kidney disease, or end stage renal disease (principal); I50.33 Acute on chronic diastolic (congestive) heart failure; Z20.822 Contact with and (suspected) exposure to COVID-19; J81.1 Chronic pulmonary edema; E87.2 Acidosis; N17.9 Acute kidney failure, unspecified; I31.3 Pericardial effusion (noninflammatory); E78.00 Pure hypercholesterolemia, unspecified; E11.21 Type 2 diabetes mellitus with diabetic nephropathy; Z79.899 Other long term (current) drug therapy; R33.9 Retention of urine, unspecified; R31.0 Gross hematuria; I25.10 Atherosclerotic heart disease of native coronary artery without angina pectoris; Z95.1 Presence of aortocoronary bypass graft; D63.1 Anemia in chronic kidney disease; E11.649 Type 2 diabetes mellitus with hypoglycemia without coma
CPT/HCPCS: 36415; 36600; 71045; 76770; 80048; 80053; 80061; 81001; 82550; 82553; 82570; 82728; 82805; 82948; 83540; 83735; 83880; 84100; 84156; 84466; 84484; 85025; 85610; 86850; 86900; 86920; 87040; 87086; 93005; 93306; 93971; 99284; J1817; J1940; J7050; J7799; P9016; U0002

== ENCOUNTER 2021-07-29 14:21 | Inpatient (IN) | payer MEDICARE ==
[~2021-07-29] VITALS: Ht 172.7 cm; Wt 89.0 kg
[~2021-07-29 14:21] MED LIST changes: +ALLOPURINOL100 MG PO; +CALCITRIOL0.25 MCG PO
[2021-07-29 15:04] LABS: BASOPHILS % 0.7 % (0.0-1.0); EOSINOPHILS # (AUTO) 0.1 (0.0-0.4); EOSINOPHILS % 2.4 % (0.0-6.0); HEMATOCRIT 27.4 % (38.2-49.6); HEMOGLOBIN 8.3 g/dL (14.0-18.0); LYMPHOCYTES # (AUTO) 0.7 (1.0-3.2); LYMPHOCYTES % 12.2 % (18.0-39.1); MEAN CORPUSCULAR HEMOGLOBIN 28.6 pg (28-32); MEAN CORPUSCULAR HGB CONC 30.3 g/dL (31-35); MEAN CORPUSCULAR VOLUME 94.5 fL (81-99); MONOCYTES # (AUTO) 0.4 (0.2-0.8); MONOCYTES % 7.3 % (4.4-11.3); NEUTROPHILS # (AUTO) 4.5 (2.1-6.9); NEUTROPHILS % 76.7 % (38.7-80.0); PLATELET COUNT 222 x10e3/uL (140-360); RED CELL DISTRIBUTION WIDTH 14.8 % (11.7-14.4)
[2021-07-29 15:27] LABS: ANION GAP 17.9 mmol/L (8-16); CREATININE, SERUM 5.57 mg/dL (0.72-1.25); POTASSIUM 3.9 mmol/L (3.5-5.1)
[2021-07-29] MEDS ORDERED: FUROSEMIDE INJ 10 MG/ML 4 ML VIAL IV ONE (21:30)
[2021-07-29] MEDS ORDERED: FUROSEMIDE INJ 10 MG/ML 2 ML VIAL ONE (22:23)
[2021-07-29] MEDS ORDERED: FUROSEMIDE INJ 10 MG/ML 4 ML VIAL ONE (22:23)
[2021-07-29 22:45] VITALS: BP 139/84
[2021-07-29 23:00] VITALS: BP 139/84
[2021-07-29] MEDS ORDERED: RENAGEL800 MG PO (23:17)
[2021-07-29] MEDS ORDERED: ATORVASTATIN CA10 MG PO (23:17)
[2021-07-29] MEDS ORDERED: MICARDIS40 MG PO (23:17)
[2021-07-29 23:30] VITALS: BP 139/84
[2021-07-30 05:04] VITALS: BP 152/64
[2021-07-30 06:28] LABS: BASOPHILS % 0.6 % (0.0-1.0); EOSINOPHILS # (AUTO) 0.1 (0.0-0.4); EOSINOPHILS % 0.9 % (0.0-6.0); HEMATOCRIT 25.2 % (38.2-49.6); LYMPHOCYTES # (AUTO) 0.4 (1.0-3.2); MEAN CORPUSCULAR HEMOGLOBIN 28.7 pg (28-32); MEAN CORPUSCULAR HGB CONC 30.2 g/dL (31-35); MEAN CORPUSCULAR VOLUME 95.1 fL (81-99); MONOCYTES # (AUTO) 0.4 (0.2-0.8); MONOCYTES % 6.5 % (4.4-11.3); NEUTROPHILS # (AUTO) 4.5 (2.1-6.9); NEUTROPHILS % 83.8 % (38.7-80.0); PLATELET COUNT 187 x10e3/uL (140-360); RED BLOOD COUNT 2.65 x10e6/uL (4.3-5.7); RED CELL DISTRIBUTION WIDTH 14.5 % (11.7-14.4)
[2021-07-30 06:42] LABS: ANION GAP 17.9 mmol/L (8-16); CALCIUM 9.1 mg/dL (8.4-10.2); CREATININE, SERUM 5.53 mg/dL (0.72-1.25); POTASSIUM 3.9 mmol/L (3.5-5.1)
[2021-07-30 06:49] LABS: HEMOGLOBIN 7.6 g/dL (14.0-18.0)
[2021-07-30 07:49] VITALS: BP 159/69
[2021-07-30 08:32] VITALS: BP 159/69
[2021-07-30] MEDS ORDERED: DEXTROSE 50% SYRINGE 50 ML IV PRN (09:00)
[2021-07-30] MEDS ORDERED: FUROSEMIDE INJ 10 MG/ML 4 ML VIAL IV SCH (09:00)
[2021-07-30] MEDS: FUROSEMIDE INJ 10 MG/ML 4 ML VIAL IV SCH ×2 (09:45→17:31)
[2021-07-30] MEDS ORDERED: FUROSEMIDE INJ 10 MG/ML 4 ML VIAL IV ONE (10:45)
[2021-07-30 11:00] VITALS: BP 137/98
[2021-07-30] MEDS: INSULIN LISPRO 100 UNIT/1 ML 3ML VIAL SQ SCH ×3 (11:30→21:00)
[2021-07-30 15:00] VITALS: BP 133/75
[2021-07-30] MEDS: METOPROLOL TARTRATE 25 MG TAB PO SCH (17:31)
[2021-07-30 20:33] VITALS: BP 131/60
[2021-07-30] MEDS: ATORVASTATIN 10 MG TAB PO SCH (21:11)
[2021-07-31] VITALS (9 sets, daily range): BP systolic 114–146; BP diastolic 49–92
[2021-07-31 07:14] LABS: INR 1.21; PROTHROMBIN TIME 16.3 seconds (11.9-14.5)
[2021-07-31 07:27] LABS: ALBUMIN 3.7 g/dL (3.5-5.0); ALBUMIN/GLOBULIN RATIO 1.2 (0.8-2.0); ANION GAP 16.7 mmol/L (8-16); CALCIUM 9.1 mg/dL (8.4-10.2); CREATININE, SERUM 5.29 mg/dL (0.72-1.25); MAGNESIUM 2.3 MG/DL (1.3-2.1); POTASSIUM 3.7 mmol/L (3.5-5.1)
[2021-07-31] MEDS: INSULIN LISPRO 100 UNIT/1 ML 3ML VIAL SQ SCH ×4 (07:30→21:00)
[2021-07-31] MEDS: METOPROLOL TARTRATE 25 MG TAB PO SCH ×2 (09:00→17:00)
[2021-07-31] MEDS: ASPIRIN 81 MG ENTERIC COATED PO SCH (09:00)
[2021-07-31] MEDS: FUROSEMIDE INJ 10 MG/ML 4 ML VIAL IV SCH ×2 (09:16→17:00)
[2021-07-31] MEDS ORDERED: SODIUM CHLORIDE 0.9% 250ML 250 ML ONE ×2 (09:55→13:11)
[2021-07-31] MEDS ORDERED: LIDOCAINE HCL 1% LOCAL INJ 20 ML VIAL ONE (09:56)
[2021-07-31] MEDS ORDERED: HEPARIN SOD/SOD CHLORIDE 1,000 ML ONE (12:08)
[2021-07-31] MEDS ORDERED: MIDAZOLAM HCL 2 MG/2 ML VIAL ONE (12:17)
[2021-07-31] MEDS ORDERED: FENTANYL CITRATE/PF 100MCG/2 ML INJ ONE (12:18)
[2021-07-31] MEDS ORDERED: SODIUM CHLORIDE 0.9% 1000ML 1,000 ML ONE (17:18)
[2021-07-31] MEDS ORDERED: SODIUM CHLORIDE 0.9% 1000ML 2,000 ML IV PRN (17:30)
[2021-07-31] MEDS ORDERED: SODIUM CHLORIDE 0.9% 250ML 500 ML IV PRN (17:30)
[2021-07-31] MEDS ORDERED: MANNITOL 25% 12.5GM/50 ML VIAL IV PRN (17:30)
[2021-07-31] MEDS ORDERED: HEPARIN SOD (PORCINE) 1000 UNIT/ML SDV IV PRN (17:30)
[2021-07-31] MEDS: ATORVASTATIN 10 MG TAB PO SCH (21:38)
[2021-08-01] VITALS (8 sets, daily range): BP systolic 91–144; BP diastolic 53–72
[2021-08-01] MEDS: INSULIN LISPRO 100 UNIT/1 ML 3ML VIAL SQ SCH ×4 (07:30→20:40)
[2021-08-01] MEDS: METOPROLOL TARTRATE 25 MG TAB PO SCH ×2 (09:00→16:35)
[2021-08-01] MEDS: ASPIRIN 81 MG ENTERIC COATED PO SCH (09:13)
[2021-08-01] MEDS: FUROSEMIDE INJ 10 MG/ML 4 ML VIAL IV SCH ×2 (09:13→16:42)
[2021-08-01] MEDS: ATORVASTATIN 10 MG TAB PO SCH (21:21)
[2021-08-02] VITALS (8 sets, daily range): BP systolic 112–167; BP diastolic 54–79
[2021-08-02 05:37] LABS: HEMATOCRIT 23.2 % (38.2-49.6); HEMOGLOBIN 7.3 g/dL (14.0-18.0); MEAN CORPUSCULAR HEMOGLOBIN 28.6 pg (28-32); MEAN CORPUSCULAR HGB CONC 31.5 g/dL (31-35); PLATELET COUNT 182 x10e3/uL (140-360); RED BLOOD COUNT 2.55 x10e6/uL (4.3-5.7); RED CELL DISTRIBUTION WIDTH 14.3 % (11.7-14.4)
[2021-08-02 06:16] LABS: ANION GAP 12.2 mmol/L (8-16); CALCIUM 8.3 mg/dL (8.4-10.2); POTASSIUM 3.2 mmol/L (3.5-5.1)
[2021-08-02 06:39] LABS: CREATININE, SERUM 4.08 mg/dL (0.72-1.25)
[2021-08-02] MEDS: INSULIN LISPRO 100 UNIT/1 ML 3ML VIAL SQ SCH ×4 (07:30→21:00)
[2021-08-02] MEDS: ASPIRIN 81 MG ENTERIC COATED PO SCH (09:00)
[2021-08-02 09:06] LABS: EOSINOPHILS % (MANUAL) 3 % (0-7); LYMPHOCYTES % (MANUAL) 11 % (19-48); MONOCYTES % (MANUAL) 5 % (3.4-9.0); NEUTROPHILS % (MANUAL) 81 % (40-74); PLATELET ESTIMATE ADEQUATE; PLATELET MORPHOLOGY COMMENT NORMAL; RBC MORPHOLOGY COMMENT NORMAL
[2021-08-02] MEDS ORDERED: HEPARIN SOD (PORCINE) 1000 UNIT/ML SDV ONE (11:01)
[2021-08-02] MEDS: FUROSEMIDE INJ 10 MG/ML 4 ML VIAL IV SCH ×2 (12:41→17:46)
[2021-08-02] MEDS: METOPROLOL TARTRATE 25 MG TAB PO SCH ×2 (12:41→17:46)
[2021-08-02] MEDS: ATORVASTATIN 10 MG TAB PO SCH (21:00)
[2021-08-03] VITALS (8 sets, daily range): BP systolic 107–138; BP diastolic 44–86
[2021-08-03 05:50] LABS: MEAN CORPUSCULAR HEMOGLOBIN 27.9 pg (28-32); MEAN CORPUSCULAR HGB CONC 30.8 g/dL (31-35); MEAN CORPUSCULAR VOLUME 90.6 fL (81-99); PLATELET COUNT 201 x10e3/uL (140-360); RED BLOOD COUNT 2.87 x10e6/uL (4.3-5.7)
[2021-08-03 06:29] LABS: ANION GAP 10.4 mmol/L (8-16); CALCIUM 8.1 mg/dL (8.4-10.2); CREATININE, SERUM 3.06 mg/dL (0.72-1.25); POTASSIUM 3.4 mmol/L (3.5-5.1)
[2021-08-03] MEDS: INSULIN LISPRO 100 UNIT/1 ML 3ML VIAL SQ SCH ×4 (08:30→21:23)
[2021-08-03] MEDS: ASPIRIN 81 MG ENTERIC COATED PO SCH (08:37)
[2021-08-03] MEDS: METOPROLOL TARTRATE 25 MG TAB PO SCH ×2 (08:37→17:40)
[2021-08-03] MEDS: FUROSEMIDE INJ 10 MG/ML 4 ML VIAL IV SCH ×2 (08:42→17:40)
[2021-08-03 13:29] LABS: EOSINOPHILS % (MANUAL) 1 % (0-7); LYMPHOCYTES % (MANUAL) 19 % (19-48); MONOCYTES % (MANUAL) 6 % (3.4-9.0); NEUTROPHILS % (MANUAL) 74 % (40-74)
[2021-08-03 13:30] LABS: PLATELET ESTIMATE ADEQUATE; PLATELET MORPHOLOGY COMMENT NORMAL; RBC MORPHOLOGY COMMENT NORMAL
[2021-08-03] MEDS ORDERED: POTASSIUM CHLORIDE 20 MEQ TAB CR PO ONE (14:45)
[2021-08-03] MEDS: ATORVASTATIN 10 MG TAB PO SCH (21:26)
[2021-08-04] VITALS: BP 118/53
[2021-08-04 04:00] VITALS: BP 135/61
[2021-08-04 06:36] LABS: ANION GAP 7.7 mmol/L (8-16); CREATININE, SERUM 3.81 mg/dL (0.72-1.25); POTASSIUM 3.7 mmol/L (3.5-5.1)
[2021-08-04] MEDS: INSULIN LISPRO 100 UNIT/1 ML 3ML VIAL SQ SCH ×2 (07:30→11:30)
[2021-08-04 08:16] VITALS: BP 116/49
[2021-08-04] MEDS: FUROSEMIDE INJ 10 MG/ML 4 ML VIAL IV SCH (08:43)
[2021-08-04] MEDS: ASPIRIN 81 MG ENTERIC COATED PO SCH (08:43)
[2021-08-04] MEDS ORDERED: ALBUMIN 25% 12.5GM 0.25 GM/ML BTL IV PRN (08:45)
[2021-08-04 11:32] VITALS: BP 131/64
[2021-08-04] MEDS ORDERED: FUROSEMIDE 40 MG TAB PO SCH (17:00)
== END 2021-08-04 15:11 | disposition home or self-care (01) | DRG 291 ==
LOC: ER 14:29 → ERHOLD 16:09 → MED/SURG 22:20
PROVIDERS: ADMIT Internal Medicine; ATTEND Internal Medicine
PROC: 5A1D70Z Performance of Urinary Filtration, Intermittent, Less than 6 Hours Per Day (ICD-10-PCS; 2021-07-31)
PROC: 0JH63XZ Insertion of Tunneled Vascular Access Device into Chest Subcutaneous Tissue and Fascia, Percutaneous Approach (ICD-10-PCS; principal; 2021-08-03)
PROC: 02HV33Z Insertion of Infusion Device into Superior Vena Cava, Percutaneous Approach (ICD-10-PCS; 2021-08-03)
DX: I13.2 Hypertensive heart and chronic kidney disease with heart failure and with stage 5 chronic kidney disease, or end stage renal disease (principal); I50.23 Acute on chronic systolic (congestive) heart failure; N18.6 End stage renal disease; G93.41 Metabolic encephalopathy; E87.2 Acidosis; E11.22 Type 2 diabetes mellitus with diabetic chronic kidney disease; Z99.2 Dependence on renal dialysis; Z79.899 Other long term (current) drug therapy; I51.7 Cardiomegaly; D63.1 Anemia in chronic kidney disease; I25.10 Atherosclerotic heart disease of native coronary artery without angina pectoris; E78.5 Hyperlipidemia, unspecified
CPT/HCPCS: 36415; 36558; 71045; 74470; 76937; 77001; 77002; 80048; 80053; 82948; 83735; 83880; 84484; 85007; 85025; 85027; 85610; 86705; 86706; 87340; 90962; 93005; 93306; 94799; 99152; 99284; C1769; C1892; J1644; J1940; J2001; J2150; J2250; J3010; J7030; J7050; J7799; U0002

== ENCOUNTER 2021-12-14 13:43 | Inpatient (IN) | payer MEDICARE, OTHER ==
[~2021-12-14] VITALS: Ht 172.7 cm; Wt 88.9 kg
[~2021-12-14 13:43] MED LIST changes: +RENAGEL800 MG PO
[2021-12-14] MEDS ORDERED: Morphine 2mg Syringe 2 MG/ML SYR IV STA (16:30)
[2021-12-14] MEDS ORDERED: ONDANSETRON HCL INJ 2MG/ML 2ML 2 MG/ML VIAL IV STA (16:30)
[2021-12-14 16:55] LABS: BASOPHILS % 0.5 % (0.0-1.0); EOSINOPHILS # (AUTO) 0.1 (0.0-0.4); EOSINOPHILS % 0.9 % (0.0-6.0); HEMATOCRIT 42.9 % (38.2-49.6); HEMOGLOBIN 13.3 g/dL (14.0-18.0); LYMPHOCYTES # (AUTO) 0.9 (1.0-3.2); LYMPHOCYTES % 10.1 % (18.0-39.1); MEAN CORPUSCULAR HEMOGLOBIN 30.3 pg (28-32); MEAN CORPUSCULAR VOLUME 97.7 fL (81-99); MONOCYTES # (AUTO) 0.9 (0.2-0.8); MONOCYTES % 9.7 % (4.4-11.3); NEUTROPHILS # (AUTO) 6.9 (2.1-6.9); NEUTROPHILS % 78.5 % (38.7-80.0); PLATELET COUNT 212 x10e3/uL (140-360); RED BLOOD COUNT 4.39 x10e6/uL (4.3-5.7); RED CELL DISTRIBUTION WIDTH 14.7 % (11.7-14.4)
[2021-12-14 17:05] LABS: INR 0.9
[2021-12-14 17:06] LABS: PARTIAL THROMBOPLASTIN TIME 30.3 seconds (23.8-35.5)
[2021-12-14 17:16] LABS: ALBUMIN 3.9 g/dL (3.5-5.0); ANION GAP 15.3 mmol/L (8-16); CALCIUM 8.8 mg/dL (8.4-10.2); CREATININE, SERUM 4.35 mg/dL (0.72-1.25); MAGNESIUM 2.2 MG/DL (1.3-2.1); POTASSIUM 4.3 mmol/L (3.5-5.1)
[2021-12-14 17:22] LABS: CREATINE KINASE MB 1.9 ng/mL (0-5.0)
[2021-12-14] MEDS ORDERED: LIDOCAINE HCL 1% LOCAL INJ 20 ML VIAL INJ ONE (17:30)
[2021-12-14] MEDS ORDERED: ONDANSETRON HCL INJ 2MG/ML 2ML 2 MG/ML VIAL IV PRN (18:30)
[2021-12-14] MEDS ORDERED: Morphine 2mg Syringe 2 MG/ML SYR IV PRN (18:30)
[2021-12-14] MEDS: FAMOTIDINE 20 MG/2 ML VIAL IV SCH (19:25)
[2021-12-14 21:18] VITALS: BP 172/79
[2021-12-14] MEDS ORDERED: HYDRALAZINE HCL 20 MG/ML VIAL IV PRN (22:30)
[2021-12-14] MEDS ORDERED: DEXTROSE 50% SYRINGE 50 ML IV PRN (22:45)
[2021-12-14] MEDS: INSULIN LISPRO 100 UNIT/1 ML 3ML VIAL SQ SCH (23:30)
[2021-12-14] MEDS: HYDRALAZINE HCL 25 MG TAB PO SCH (23:30)
[2021-12-14] MEDS: TELMISARTAN 40 MG TAB PO SCH (23:30)
[2021-12-15] VITALS (8 sets, daily range): BP systolic 129–148; BP diastolic 59–73
[2021-12-15 00:01] LABS: CREATINE KINASE 137 IU/L (30-200)
[2021-12-15] MEDS: FAMOTIDINE 20 MG/2 ML VIAL IV SCH ×2 (05:29→18:30)
[2021-12-15 05:36] LABS: BASOPHILS % 0.8 % (0.0-1.0); EOSINOPHILS # (AUTO) 0.1 (0.0-0.4); EOSINOPHILS % 2.4 % (0.0-6.0); HEMATOCRIT 36.3 % (38.2-49.6); HEMOGLOBIN 11.2 g/dL (14.0-18.0); LYMPHOCYTES # (AUTO) 0.7 (1.0-3.2); LYMPHOCYTES % 14.2 % (18.0-39.1); MEAN CORPUSCULAR HGB CONC 30.9 g/dL (31-35); MEAN CORPUSCULAR VOLUME 97.3 fL (81-99); MONOCYTES # (AUTO) 0.9 (0.2-0.8); MONOCYTES % 17.4 % (4.4-11.3); NEUTROPHILS # (AUTO) 3.2 (2.1-6.9); PLATELET COUNT 186 x10e3/uL (140-360); RED BLOOD COUNT 3.73 x10e6/uL (4.3-5.7); RED CELL DISTRIBUTION WIDTH 14.6 % (11.7-14.4)
[2021-12-15 05:57] LABS: ANION GAP 12.2 mmol/L (8-16); CALCIUM 8.1 mg/dL (8.4-10.2); CREATINE KINASE 134 IU/L (30-200); CREATININE, SERUM 4.52 mg/dL (0.72-1.25); POTASSIUM 4.2 mmol/L (3.5-5.1)
[2021-12-15] MEDS: INSULIN LISPRO 100 UNIT/1 ML 3ML VIAL SQ SCH ×4 (07:30→21:00)
[2021-12-15] MEDS: SEVELAMER CARBONATE 800 MG TAB PO SCH (08:00)
[2021-12-15] MEDS: HYDRALAZINE HCL 25 MG TAB PO SCH ×2 (09:00→22:45)
[2021-12-15] MEDS: ALLOPURINOL 100 MG TAB PO SCH (09:00)
[2021-12-15] MEDS: CALCITRIOL 0.25 MCG CAP PO SCH (09:00)
[2021-12-15] MEDS: TELMISARTAN 40 MG TAB PO SCH ×2 (09:00→22:45)
[2021-12-15] MEDS ORDERED: CALCITRIOL 0.25 MCG CAP PO SCH (09:00)
[2021-12-15] MEDS: AMLODIPINE BESYLATE 10 MG TAB PO SCH (09:00)
[2021-12-15] MEDS: OMEGA 3 POLYUNSAT FATTY ACIDS 1000 MG SOFTGEL PO SCH (09:00)
[2021-12-15] MEDS ORDERED: PROPOFOL IV EMULSION 10 MG/ML 20 ML VIAL ONE (12:19)
[2021-12-15] MEDS ORDERED: POVIDONE IODINE 0.05% 0.05 % ML PO ONE (12:19)
[2021-12-15 12:39] LABS: CREATINE KINASE MB 0.8 ng/mL (0-5.0)
[2021-12-15] MEDS ORDERED: SODIUM CHLORIDE 0.9% 500ML 500 ML ONE (13:15)
[2021-12-15] MEDS ORDERED: NEOSTIGMINE 1 MG/ML 10ML VIAL ONE (13:52)
[2021-12-15] MEDS ORDERED: BUPIVACAINE HCL 0.25% 10ML MPF VIAL INJ ONE (13:52)
[2021-12-15] MEDS: SODIUM CHLORIDE 0.9% 1000ML 1,000 ML IV SCH (17:15)
[2021-12-15] MEDS ORDERED: HEPARIN SOD (PORCINE) 1000 UNIT/ML SDV ONE (18:33)
[2021-12-15] MEDS: ATORVASTATIN 10 MG TAB PO SCH (22:45)
[2021-12-16] VITALS (8 sets, daily range): BP systolic 117–158; BP diastolic 52–79
[2021-12-16] MEDS: SODIUM CHLORIDE 0.9% 1000ML 1,000 ML IV SCH (03:15)
[2021-12-16] MEDS ORDERED: LORAZEPAM INJ 2 MG/ML VIAL IV PRN (03:15)
[2021-12-16] MEDS: FAMOTIDINE 20 MG/2 ML VIAL IV SCH ×2 (06:16→18:00)
[2021-12-16] MEDS: INSULIN LISPRO 100 UNIT/1 ML 3ML VIAL SQ SCH ×4 (08:30→19:26)
[2021-12-16] MEDS: SEVELAMER CARBONATE 800 MG TAB PO SCH (09:09)
[2021-12-16] MEDS: HYDRALAZINE HCL 25 MG TAB PO SCH ×2 (09:09→22:10)
[2021-12-16] MEDS: ALLOPURINOL 100 MG TAB PO SCH (09:10)
[2021-12-16] MEDS: AMLODIPINE BESYLATE 10 MG TAB PO SCH (09:10)
[2021-12-16] MEDS: TELMISARTAN 40 MG TAB PO SCH ×2 (09:10→22:10)
[2021-12-16] MEDS: CALCITRIOL 0.25 MCG CAP PO SCH (09:10)
[2021-12-16] MEDS: OMEGA 3 POLYUNSAT FATTY ACIDS 1000 MG SOFTGEL PO SCH (09:10)
[2021-12-16 14:25] LABS: ANION GAP 13.9 mmol/L (8-16); CALCIUM 8.1 mg/dL (8.4-10.2); CREATININE, SERUM 3.54 mg/dL (0.72-1.25); POTASSIUM 3.9 mmol/L (3.5-5.1)
[2021-12-16 14:30] LABS: HEMATOCRIT 34.8 % (38.2-49.6); HEMOGLOBIN 10.9 g/dL (14.0-18.0); MEAN CORPUSCULAR HEMOGLOBIN 30.5 pg (28-32); MEAN CORPUSCULAR HGB CONC 31.3 g/dL (31-35); MEAN CORPUSCULAR VOLUME 97.5 fL (81-99); PLATELET COUNT 170 x10e3/uL (140-360); RED BLOOD COUNT 3.57 x10e6/uL (4.3-5.7); RED CELL DISTRIBUTION WIDTH 14.2 % (11.7-14.4)
[2021-12-16 15:44] LABS: LYMPHOCYTES % (MANUAL) 7 % (19-48); MONOCYTES % (MANUAL) 15 % (3.4-9.0); NEUTROPHILS % (MANUAL) 78 % (40-74); PLATELET ESTIMATE ADEQUATE; PLATELET MORPHOLOGY COMMENT NORMAL; RBC MORPHOLOGY COMMENT NORMAL
[2021-12-16] MEDS: ENOXAPARIN 30 MG/0.3 ML SYR SC SCH (16:51)
[2021-12-16] MEDS: ATORVASTATIN 10 MG TAB PO SCH (22:10)
[2021-12-17] VITALS (8 sets, daily range): BP systolic 130–149; BP diastolic 59–69
[2021-12-17] MEDS ORDERED: ACETAMINOPHEN 325 MG TAB PO PRN (01:00)
[2021-12-17 05:01] LABS: HEMOGLOBIN 10.7 g/dL (14.0-18.0); MEAN CORPUSCULAR HEMOGLOBIN 30.1 pg (28-32); MEAN CORPUSCULAR HGB CONC 31.5 g/dL (31-35); MEAN CORPUSCULAR VOLUME 95.8 fL (81-99); PLATELET COUNT 172 x10e3/uL (140-360); RED BLOOD COUNT 3.55 x10e6/uL (4.3-5.7); RED CELL DISTRIBUTION WIDTH 13.8 % (11.7-14.4)
[2021-12-17 05:27] LABS: ALBUMIN 2.9 g/dL (3.5-5.0); ALBUMIN/GLOBULIN RATIO 0.8 (0.8-2.0); ANION GAP 12.7 mmol/L (8-16); CALCIUM 8.3 mg/dL (8.4-10.2); CREATININE, SERUM 4.17 mg/dL (0.72-1.25); POTASSIUM 3.7 mmol/L (3.5-5.1)
[2021-12-17] MEDS: FAMOTIDINE 20 MG/2 ML VIAL IV SCH ×2 (06:30→18:19)
[2021-12-17] MEDS: INSULIN LISPRO 100 UNIT/1 ML 3ML VIAL SQ SCH ×4 (08:30→20:50)
[2021-12-17] MEDS: SEVELAMER CARBONATE 800 MG TAB PO SCH (08:33)
[2021-12-17] MEDS: CALCITRIOL 0.25 MCG CAP PO SCH (08:33)
[2021-12-17] MEDS: ALLOPURINOL 100 MG TAB PO SCH (08:33)
[2021-12-17] MEDS: OMEGA 3 POLYUNSAT FATTY ACIDS 1000 MG SOFTGEL PO SCH (08:33)
[2021-12-17] MEDS: AMLODIPINE BESYLATE 10 MG TAB PO SCH (09:00)
[2021-12-17] MEDS: HYDRALAZINE HCL 25 MG TAB PO SCH ×2 (09:00→20:50)
[2021-12-17] MEDS: TELMISARTAN 40 MG TAB PO SCH ×2 (09:00→20:51)
[2021-12-17 10:32] LABS: EOSINOPHILS % (MANUAL) 2 % (0-7); LYMPHOCYTES % (MANUAL) 11 % (19-48); MONOCYTES % (MANUAL) 10 % (3.4-9.0); NEUTROPHILS % (MANUAL) 76 % (40-74); PLATELET ESTIMATE ADEQUATE; PLATELET MORPHOLOGY COMMENT NORMAL; RBC MORPHOLOGY COMMENT NORMAL
[2021-12-17] MEDS ORDERED: SODIUM CHLORIDE 0.9% 1000ML 2,000 ML ONE (13:12)
[2021-12-17] MEDS: HYDROCODONE/APAP 5MG-325MG TAB PO PRN (16:40)
[2021-12-17] MEDS ORDERED: HEPARIN SOD (PORCINE) 1000 UNIT/ML SDV ONE (16:55)
[2021-12-17] MEDS: ENOXAPARIN 30 MG/0.3 ML SYR SC SCH (17:30)
[2021-12-17] MEDS ORDERED: SODIUM CHLORIDE 0.9% 250ML 250 ML ONE (17:56)
[2021-12-17] MEDS ORDERED: Vancomycin IV 500 MG in SODIUM CHLORIDE 0.9% 100 ML IV SCH (18:00)
[2021-12-17] MEDS: Vancomycin IV 500 MG in SODIUM CHLORIDE 0.9% 100 ML IV SCH (19:40)
[2021-12-17] MEDS: ATORVASTATIN 10 MG TAB PO SCH (20:51)
[2021-12-18] VITALS (8 sets, daily range): BP systolic 110–169; BP diastolic 55–78
[2021-12-18 04:59] LABS: HEMATOCRIT 35.2 % (38.2-49.6); HEMOGLOBIN 11.1 g/dL (14.0-18.0); MEAN CORPUSCULAR HEMOGLOBIN 30.4 pg (28-32); MEAN CORPUSCULAR HGB CONC 31.5 g/dL (31-35); MEAN CORPUSCULAR VOLUME 96.4 fL (81-99); PLATELET COUNT 193 x10e3/uL (140-360); RED BLOOD COUNT 3.65 x10e6/uL (4.3-5.7); RED CELL DISTRIBUTION WIDTH 13.6 % (11.7-14.4)
[2021-12-18 05:17] LABS: ANION GAP 13.6 mmol/L (8-16); CALCIUM 8.3 mg/dL (8.4-10.2); CREATININE, SERUM 2.97 mg/dL (0.72-1.25); POTASSIUM 3.6 mmol/L (3.5-5.1)
[2021-12-18] MEDS: FAMOTIDINE 20 MG/2 ML VIAL IV SCH ×2 (05:54→17:35)
[2021-12-18 06:43] LABS: EOSINOPHILS % (MANUAL) 1 % (0-7); LYMPHOCYTES % (MANUAL) 19 % (19-48); MONOCYTES % (MANUAL) 9 % (3.4-9.0); NEUTROPHILS % (MANUAL) 70 % (40-74); PLATELET ESTIMATE ADEQUATE; PLATELET MORPHOLOGY COMMENT FEW LARGE; RBC MORPHOLOGY COMMENT NORMAL
[2021-12-18] MEDS: INSULIN LISPRO 100 UNIT/1 ML 3ML VIAL SQ SCH ×4 (08:30→21:00)
[2021-12-18] MEDS: ALLOPURINOL 100 MG TAB PO SCH (09:25)
[2021-12-18] MEDS: HYDRALAZINE HCL 25 MG TAB PO SCH ×2 (09:25→21:00)
[2021-12-18] MEDS: CALCITRIOL 0.25 MCG CAP PO SCH (09:25)
[2021-12-18] MEDS: OMEGA 3 POLYUNSAT FATTY ACIDS 1000 MG SOFTGEL PO SCH (09:25)
[2021-12-18] MEDS: AMLODIPINE BESYLATE 10 MG TAB PO SCH (09:25)
[2021-12-18] MEDS: TELMISARTAN 40 MG TAB PO SCH ×2 (09:25→21:00)
[2021-12-18] MEDS: SEVELAMER CARBONATE 800 MG TAB PO SCH (09:26)
[2021-12-18 10:28] LABS: CLARITY,URINE CLEAR (CLEAR); COLOR,URINE YELLOW (YELLOW); LEUKOCYTE ESTERASE ,URINE NEGATIVE (NEGATIVE); NITRITE,URINE NEGATIVE (NEGATIVE)
[2021-12-18 10:29] LABS: KETONES,URINE TRACE (NEGATIVE); PROTEIN,URINE DIPSTICK NEGATIVE (NEGATIVE); URINE UROBILINOGEN 1 mg/dL (0.2 - 1)
[2021-12-18 10:31] LABS: BACTERIA,URINE FEW /HPF; EPITHELIAL CELLS,URINE FEW /LPF; RBC,URINE 0-5 /HPF (0-5); RENAL EPITHELIAL CELLS,URINE MODERATE; WBC,URINE (MAN) 0-5 /HPF (0-5)
[2021-12-18] MEDS: HYDROCODONE/APAP 5MG-325MG TAB PO PRN ×2 (14:13→23:44)
[2021-12-18] MEDS: ENOXAPARIN 30 MG/0.3 ML SYR SC SCH (17:08)
[2021-12-18] MEDS: ATORVASTATIN 10 MG TAB PO SCH (21:00)
[2021-12-19] VITALS (7 sets, daily range): BP systolic 132–152; BP diastolic 61–78
[2021-12-19] MEDS: FAMOTIDINE 20 MG/2 ML VIAL IV SCH ×2 (06:11→17:30)
[2021-12-19] MEDS: INSULIN LISPRO 100 UNIT/1 ML 3ML VIAL SQ SCH ×4 (07:30→21:00)
[2021-12-19] MEDS: ALLOPURINOL 100 MG TAB PO SCH (08:34)
[2021-12-19] MEDS: CALCITRIOL 0.25 MCG CAP PO SCH (08:34)
[2021-12-19] MEDS: HYDRALAZINE HCL 25 MG TAB PO SCH ×2 (08:34→22:03)
[2021-12-19] MEDS: TELMISARTAN 40 MG TAB PO SCH ×2 (08:34→22:05)
[2021-12-19] MEDS: SEVELAMER CARBONATE 800 MG TAB PO SCH (08:34)
[2021-12-19] MEDS: AMLODIPINE BESYLATE 10 MG TAB PO SCH (08:34)
[2021-12-19] MEDS: OMEGA 3 POLYUNSAT FATTY ACIDS 1000 MG SOFTGEL PO SCH (08:34)
[2021-12-19] MEDS: HYDROCODONE/APAP 5MG-325MG TAB PO PRN (13:40)
[2021-12-19] MEDS: ENOXAPARIN 30 MG/0.3 ML SYR SC SCH (16:36)
[2021-12-19] MEDS: ATORVASTATIN 10 MG TAB PO SCH (22:04)
[2021-12-20] VITALS (8 sets, daily range): BP systolic 128–163; BP diastolic 60–90
[2021-12-20] MEDS: FAMOTIDINE 20 MG/2 ML VIAL IV SCH ×2 (05:47→16:45)
[2021-12-20 05:57] LABS: ANION GAP 11.8 mmol/L (8-16); CALCIUM 8.9 mg/dL (8.4-10.2); CREATININE, SERUM 4.61 mg/dL (0.72-1.25); POTASSIUM 3.8 mmol/L (3.5-5.1)
[2021-12-20] MEDS: SEVELAMER CARBONATE 800 MG TAB PO SCH (08:19)
[2021-12-20] MEDS: OMEGA 3 POLYUNSAT FATTY ACIDS 1000 MG SOFTGEL PO SCH (08:20)
[2021-12-20] MEDS: INSULIN LISPRO 100 UNIT/1 ML 3ML VIAL SQ SCH ×4 (08:20→21:09)
[2021-12-20] MEDS: CALCITRIOL 0.25 MCG CAP PO SCH (08:20)
[2021-12-20] MEDS: ALLOPURINOL 100 MG TAB PO SCH (08:20)
[2021-12-20] MEDS: HYDRALAZINE HCL 25 MG TAB PO SCH ×2 (09:00→21:03)
[2021-12-20] MEDS: AMLODIPINE BESYLATE 10 MG TAB PO SCH (09:00)
[2021-12-20] MEDS: TELMISARTAN 40 MG TAB PO SCH ×2 (09:00→21:03)
[2021-12-20] MEDS: ENOXAPARIN 30 MG/0.3 ML SYR SC SCH (16:45)
[2021-12-20] MEDS ORDERED: SODIUM CHLORIDE 0.9% 1000ML 1,000 ML ONE (16:58)
[2021-12-20] MEDS: Vancomycin IV 500 MG in SODIUM CHLORIDE 0.9% 100 ML IV SCH (20:11)
[2021-12-20] MEDS: ATORVASTATIN 10 MG TAB PO SCH (21:03)
[2021-12-20] MEDS ORDERED: LORAZEPAM INJ 2 MG/ML VIAL IV ONE (22:15)
[2021-12-21] VITALS: BP 122/62
[2021-12-21 04:00] VITALS: BP 137/67
[2021-12-21 05:30] LABS: ANION GAP 14.2 mmol/L (8-16); CALCIUM 8.4 mg/dL (8.4-10.2); CREATININE, SERUM 3.47 mg/dL (0.72-1.25); POTASSIUM 4.2 mmol/L (3.5-5.1)
[2021-12-21] MEDS: FAMOTIDINE 20 MG/2 ML VIAL IV SCH (06:08)
[2021-12-21 07:21] VITALS: BP 134/75
[2021-12-21 08:00] VITALS: BP 134/75
[2021-12-21] MEDS: OMEGA 3 POLYUNSAT FATTY ACIDS 1000 MG SOFTGEL PO SCH (08:03)
[2021-12-21] MEDS: CALCITRIOL 0.25 MCG CAP PO SCH (08:03)
[2021-12-21] MEDS: AMLODIPINE BESYLATE 10 MG TAB PO SCH (08:03)
[2021-12-21] MEDS: ALLOPURINOL 100 MG TAB PO SCH (08:03)
[2021-12-21] MEDS: HYDRALAZINE HCL 25 MG TAB PO SCH (08:04)
[2021-12-21] MEDS: TELMISARTAN 40 MG TAB PO SCH (08:04)
[2021-12-21] MEDS: INSULIN LISPRO 100 UNIT/1 ML 3ML VIAL SQ SCH ×2 (08:04→12:07)
[2021-12-21] MEDS: SEVELAMER CARBONATE 800 MG TAB PO SCH (08:10)
[2021-12-21 11:06] VITALS: BP 139/69
[2021-12-21] MEDS ORDERED: FAMOTIDINE 20 MG TAB PO SCH (16:30)
== END 2021-12-21 12:25 | DRG 562 ==
LOC: ER 14:15 → ERHOLD 18:37 → MED/SURG 21:17
PROVIDERS: ADMIT Internal Medicine; ATTEND Internal Medicine
PROC: 0QSGXZZ Reposition Right Tibia, External Approach (ICD-10-PCS; 2021-12-15)
PROC: 5A1D70Z Performance of Urinary Filtration, Intermittent, Less than 6 Hours Per Day (ICD-10-PCS; 2021-12-15)
PROC: 0QSLXZZ Reposition Right Tarsal, External Approach (ICD-10-PCS; principal; 2021-12-15 16:24)
DX: S82.851A Displaced trimalleolar fracture of right lower leg, initial encounter for closed fracture (principal); N18.6 End stage renal disease; J69.0 Pneumonitis due to inhalation of food and vomit; I13.2 Hypertensive heart and chronic kidney disease with heart failure and with stage 5 chronic kidney disease, or end stage renal disease; E11.610 Type 2 diabetes mellitus with diabetic neuropathic arthropathy; E83.39 Other disorders of phosphorus metabolism; F03.90 Unspecified dementia, unspecified severity, without behavioral disturbance, psychotic disturbance, mood disturbance, and anxiety; E11.22 Type 2 diabetes mellitus with diabetic chronic kidney disease; I50.9 Heart failure, unspecified; Z99.2 Dependence on renal dialysis; I25.10 Atherosclerotic heart disease of native coronary artery without angina pectoris; E78.5 Hyperlipidemia, unspecified; W01.10XA Fall on same level from slipping, tripping and stumbling with subsequent striking against unspecified object, initial encounter; Y92.511 Restaurant or cafe as the place of occurrence of the external cause; Y93.01 Activity, walking, marching and hiking; Z90.49 Acquired absence of other specified parts of digestive tract; Z91.19 Patient's noncompliance with other medical treatment and regimen; R41.0 Disorientation, unspecified; Z20.822 Contact with and (suspected) exposure to COVID-19; M85.871 Other specified disorders of bone density and structure, right ankle and foot; N25.0 Renal osteodystrophy
CPT/HCPCS: 36415; 70450; 71045; 72125; 76000; 80048; 80053; 81001; 82550; 82553; 82948; 83735; 84484; 85007; 85025; 85027; 85610; 85730; 86705; 86706; 87040; 87086; 87340; 90962; 93005; 94799; 97139; 99251; 99284; J0690; J0692; J1644; J1650; J2060; J2270; J2405; J2710; J3370; J7030; J7040; J7050; U0002

== ENCOUNTER 2022-02-23 07:59 | Observation (INO) | payer MEDICARE ==
[~2022-02-23] VITALS: Ht 172.7 cm; Wt 77.1 kg
[2022-02-23] MEDS ORDERED: SODIUM CHLORIDE FLUSH 10 ML SYR IV PRN (08:15)
[2022-02-23 08:31] LABS: BASOPHILS % 0.4 % (0.0-1.0); HEMATOCRIT 31.4 % (38.2-49.6); HEMOGLOBIN 9.5 g/dL (14.0-18.0); LYMPHOCYTES # (AUTO) 0.4 (1.0-3.2); MEAN CORPUSCULAR HEMOGLOBIN 25.8 pg (28-32); MEAN CORPUSCULAR HGB CONC 30.3 g/dL (31-35); MEAN CORPUSCULAR VOLUME 85.3 fL (81-99); MONOCYTES # (AUTO) 0.4 (0.2-0.8); MONOCYTES % 8.8 % (4.4-11.3); NEUTROPHILS # (AUTO) 3.9 (2.1-6.9); NEUTROPHILS % 82.4 % (38.7-80.0); PLATELET COUNT 312 x10e3/uL (140-360); RED BLOOD COUNT 3.68 x10e6/uL (4.3-5.7)
[2022-02-23 08:42] LABS: INR 0.9
[2022-02-23 08:43] LABS: PARTIAL THROMBOPLASTIN TIME 39.5 seconds (23.8-35.5)
[2022-02-23 09:00] LABS: ALBUMIN 2.5 g/dL (3.5-5.0); ALBUMIN/GLOBULIN RATIO 0.6 (0.8-2.0); CALCIUM 7.8 mg/dL (8.4-10.2); CREATININE, SERUM 5.04 mg/dL (0.72-1.25)
[2022-02-23] MEDS ORDERED: ASPIRIN 325 MG TAB PO ONE (09:45)
[2022-02-23] MEDS ORDERED: ONDANSETRON HCL INJ 2MG/ML 2ML 2 MG/ML VIAL IV PRN (10:45)
[2022-02-23] MEDS ORDERED: DEXTROSE 50% SYRINGE 50 ML IV PRN (10:45)
[2022-02-23] MEDS ORDERED: POTASSIUM CHLORIDE 20 MEQ TAB CR PO ONE (11:30)
[2022-02-23] MEDS ORDERED: BEBTELOVIMAB 175 MG INJ IV ONE (12:15)
[2022-02-23 15:39] VITALS: BP 125/61
[2022-02-23 15:56] VITALS: BP 125/61
[2022-02-23 16:10] VITALS: BP 125/61
[2022-02-23 20:00] VITALS: BP 134/67
[2022-02-23] MEDS ORDERED: HYDROCODONE/APAP 5MG-325MG TAB PO PRN (21:30)
[2022-02-23 22:45] VITALS: BP 134/67
[2022-02-24] VITALS (8 sets, daily range): BP systolic 107–153; BP diastolic 50–67
[2022-02-24 05:14] LABS: BASOPHILS % 0.2 % (0.0-1.0); EOSINOPHILS % 0.2 % (0.0-6.0); LYMPHOCYTES # (AUTO) 0.8 (1.0-3.2); LYMPHOCYTES % 18.5 % (18.0-39.1); MEAN CORPUSCULAR HEMOGLOBIN 26.2 pg (28-32); MEAN CORPUSCULAR HGB CONC 30.8 g/dL (31-35); MEAN CORPUSCULAR VOLUME 85.2 fL (81-99); MONOCYTES # (AUTO) 0.3 (0.2-0.8); MONOCYTES % 7.9 % (4.4-11.3); NEUTROPHILS # (AUTO) 2.9 (2.1-6.9); NEUTROPHILS % 72.5 % (38.7-80.0); PLATELET COUNT 295 x10e3/uL (140-360); RED BLOOD COUNT 3.05 x10e6/uL (4.3-5.7); RED CELL DISTRIBUTION WIDTH 17.4 % (11.7-14.4)
[2022-02-24 06:02] LABS: ALBUMIN 2.2 g/dL (3.5-5.0); ALBUMIN/GLOBULIN RATIO 0.6 (0.8-2.0); ANION GAP 11.4 mmol/L (8-16); CALCIUM 7.3 mg/dL (8.4-10.2); CREATININE, SERUM 5.55 mg/dL (0.72-1.25); POTASSIUM 3.4 mmol/L (3.5-5.1)
[2022-02-24] MEDS ORDERED: BEBTELOVIMAB 175 MG INJ IV ONE (13:00)
[2022-02-24] MEDS ORDERED: SODIUM CHLORIDE 0.9% 250ML 500 ML IV PRN (15:30)
[2022-02-24] MEDS ORDERED: ALBUMIN 25% 12.5GM 0.25 GM/ML BTL IV PRN (15:30)
[2022-02-24] MEDS ORDERED: HEPARIN SOD (PORCINE) 1000 UNIT/ML SDV IV PRN (15:30)
[2022-02-24] MEDS ORDERED: SODIUM CHLORIDE 0.9% 1000ML 2,000 ML IV PRN (15:30)
[2022-02-24] MEDS ORDERED: SODIUM CHLORIDE 0.9% 1000ML 1,000 ML ONE (15:44)
[2022-02-25 04:31] VITALS: BP 127/54
[2022-02-25 06:14] LABS: HEMATOCRIT 26.4 % (38.2-49.6); MEAN CORPUSCULAR HEMOGLOBIN 26.5 pg (28-32); MEAN CORPUSCULAR HGB CONC 30.3 g/dL (31-35); MEAN CORPUSCULAR VOLUME 87.4 fL (81-99); PLATELET COUNT 293 x10e3/uL (140-360); RED BLOOD COUNT 3.02 x10e6/uL (4.3-5.7); RED CELL DISTRIBUTION WIDTH 17.2 % (11.7-14.4)
[2022-02-25 06:21] LABS: ANION GAP 12.7 mmol/L (8-16); CALCIUM 7.5 mg/dL (8.4-10.2); CREATININE, SERUM 3.37 mg/dL (0.72-1.25); POTASSIUM 3.7 mmol/L (3.5-5.1)
[2022-02-25 08:00] VITALS: BP 141/64
[2022-02-25 08:40] VITALS: BP 141/64
[2022-02-25 09:42] LABS: BAND NEUTROPHILS % (MANUAL) 5 %; LYMPHOCYTES % (MANUAL) 12 % (19-48); METAMYELOCYTES % (MANUAL) 1 % (0-0); MONOCYTES % (MANUAL) 14 % (3.4-9.0); MYELOCYTES % (MANUAL) 2 % (0-0); NEUTROPHILS % (MANUAL) 65 % (40-74)
[2022-02-25 09:45] LABS: PLATELET ESTIMATE ADEQUATE; PLATELET MORPHOLOGY COMMENT NORMAL; POIKILOCYTOSIS SLIGHT
[2022-02-25 09:46] LABS: ANISOCYTOSIS SLIGHT
[2022-02-25] MEDS ORDERED: SODIUM CHLORIDE 0.9% 1000ML 2,000 ML ONE (10:15)
[2022-02-25 12:13] VITALS: BP 150/73
[2022-02-25] MEDS ORDERED: HEPARIN SOD (PORCINE) 1000 UNIT/ML SDV ONE (13:21)
[2022-02-25 16:02] VITALS: BP 149/72
[2022-02-25] MEDS ORDERED: ONDANSETRON HCL 4 MG ORAL DISINTEGRATING TAB PO PRN (16:30)
== END 2022-02-25 18:00 | disposition home or self-care (01) ==
LOC: ER 08:02 → INTOOBSV 10:47 → ERHOLD 10:47 → MED/SURG3 14:54
PROVIDERS: ADMIT Internal Medicine; ATTEND Internal Medicine
DX: I13.2 Hypertensive heart and chronic kidney disease with heart failure and with stage 5 chronic kidney disease, or end stage renal disease (principal); E11.22 Type 2 diabetes mellitus with diabetic chronic kidney disease; I50.9 Heart failure, unspecified; N18.6 End stage renal disease; Z99.2 Dependence on renal dialysis; Z79.4 Long term (current) use of insulin; E87.6 Hypokalemia; U07.1 COVID-19; E11.69 Type 2 diabetes mellitus with other specified complication; E78.5 Hyperlipidemia, unspecified; I25.10 Atherosclerotic heart disease of native coronary artery without angina pectoris; E11.649 Type 2 diabetes mellitus with hypoglycemia without coma
CPT/HCPCS: 36415 ×3; 70450; 71045; 80048; 80053 ×2; 82948 ×3; 83605; 84484; 85007; 85025 ×2; 85027; 85610; 85730; 87040; 93005; 94760; 99285; G0378 ×3; J1644 ×2; J7030 ×2; U0002; J2405

== ENCOUNTER 2022-03-11 23:20 | Emergency (ER) | payer MEDICARE ==
[~2022-03-11] VITALS: Ht 172.7 cm; Wt 77.1 kg
[2022-03-11 23:40] LABS: BASOPHILS % 0.7 % (0.0-1.0); EOSINOPHILS # (AUTO) 0.1 (0.0-0.4); EOSINOPHILS % 1.8 % (0.0-6.0); HEMATOCRIT 26.5 % (38.2-49.6); HEMOGLOBIN 7.9 g/dL (14.0-18.0); LYMPHOCYTES # (AUTO) 1.1 (1.0-3.2); LYMPHOCYTES % 18.8 % (18.0-39.1); MEAN CORPUSCULAR HEMOGLOBIN 25.6 pg (28-32); MEAN CORPUSCULAR HGB CONC 29.8 g/dL (31-35); MONOCYTES # (AUTO) 0.7 (0.2-0.8); MONOCYTES % 11.6 % (4.4-11.3); NEUTROPHILS % 66.1 % (38.7-80.0); PLATELET COUNT 295 x10e3/uL (140-360); RED BLOOD COUNT 3.08 x10e6/uL (4.3-5.7); RED CELL DISTRIBUTION WIDTH 18.9 % (11.7-14.4)
[2022-03-11 23:54] LABS: CALCIUM 8.7 mg/dL (8.4-10.2); CREATININE, SERUM 1.85 mg/dL (0.72-1.25)
[2022-03-12 00:46] VITALS: BP 143/64
== END 2022-03-12 00:51 | disposition home or self-care (01) ==
LOC: ER 23:29
DX: D64.9 Anemia, unspecified (principal); I12.0 Hypertensive chronic kidney disease with stage 5 chronic kidney disease or end stage renal disease; E11.22 Type 2 diabetes mellitus with diabetic chronic kidney disease; N18.6 End stage renal disease; Z99.2 Dependence on renal dialysis; I50.9 Heart failure, unspecified; I25.10 Atherosclerotic heart disease of native coronary artery without angina pectoris
CPT/HCPCS: 36415; 80048; 85025; 86850; 86900; 99284

== ENCOUNTER 2022-04-07 11:05 | Inpatient (IN) | payer MEDICARE ==
[~2022-04-07] VITALS: Ht 172.7 cm; Wt 72.6 kg
[2022-04-07 11:32] LABS: BASOPHILS % 0.3 % (0.0-1.0); EOSINOPHILS % 0.2 % (0.0-6.0); HEMATOCRIT 26.6 % (38.2-49.6); LYMPHOCYTES % 11.4 % (18.0-39.1); MEAN CORPUSCULAR HEMOGLOBIN 25.3 pg (28-32); MEAN CORPUSCULAR HGB CONC 30.1 g/dL (31-35); MEAN CORPUSCULAR VOLUME 84.2 fL (81-99); MONOCYTES # (AUTO) 0.9 (0.2-0.8); MONOCYTES % 10.2 % (4.4-11.3); NEUTROPHILS # (AUTO) 6.9 (2.1-6.9); NEUTROPHILS % 77.2 % (38.7-80.0); PLATELET COUNT 326 x10e3/uL (140-360); RED BLOOD COUNT 3.16 x10e6/uL (4.3-5.7); RED CELL DISTRIBUTION WIDTH 18.1 % (11.7-14.4)
[2022-04-07 11:46] LABS: ALBUMIN 2.4 g/dL (3.5-5.0); ALBUMIN/GLOBULIN RATIO 0.5 (0.8-2.0); ANION GAP 13.2 mmol/L (8-16); CALCIUM 8.8 mg/dL (8.4-10.2); CREATININE, SERUM 3.24 mg/dL (0.72-1.25); POTASSIUM 3.2 mmol/L (3.5-5.1)
[2022-04-07] MEDS ORDERED: SODIUM CHLORIDE FLUSH 10 ML SYR INJ PRN (12:45)
[2022-04-07] MEDS ORDERED: Morphine 2mg Syringe 2 MG/ML SYR IV PRN (12:45)
[2022-04-07] MEDS ORDERED: Morphine 4mg INJECTION 4 MG/ML INJ IV PRN (12:45)
[2022-04-07] MEDS ORDERED: ONDANSETRON HCL INJ 2MG/ML 2ML 2 MG/ML VIAL IV PRN (12:45)
[2022-04-07] MEDS ORDERED: SODIUM CHLORIDE 0.9% 1000ML 1,000 ML IV ONE (13:15)
[2022-04-07 20:00] VITALS: BP 129/81
[2022-04-08] VITALS (10 sets, daily range): BP systolic 121–138; BP diastolic 62–71
[2022-04-08 05:47] LABS: BASOPHILS % 0.3 % (0.0-1.0); EOSINOPHILS % 0.2 % (0.0-6.0); HEMATOCRIT 25.9 % (38.2-49.6); HEMOGLOBIN 7.9 g/dL (14.0-18.0); LYMPHOCYTES # (AUTO) 0.8 (1.0-3.2); LYMPHOCYTES % 7.1 % (18.0-39.1); MEAN CORPUSCULAR HEMOGLOBIN 25.2 pg (28-32); MEAN CORPUSCULAR HGB CONC 30.5 g/dL (31-35); MEAN CORPUSCULAR VOLUME 82.7 fL (81-99); MONOCYTES % 9.5 % (4.4-11.3); NEUTROPHILS # (AUTO) 8.6 (2.1-6.9); NEUTROPHILS % 81.8 % (38.7-80.0); PLATELET COUNT 336 x10e3/uL (140-360); RED BLOOD COUNT 3.13 x10e6/uL (4.3-5.7); RED CELL DISTRIBUTION WIDTH 18.2 % (11.7-14.4)
[2022-04-08 06:10] LABS: CALCIUM 8.4 mg/dL (8.4-10.2); CREATININE, SERUM 3.77 mg/dL (0.72-1.25)
[2022-04-08] MEDS ORDERED: DEXTROSE 50% SYRINGE 50 ML IV PRN (11:30)
[2022-04-08] MEDS: INSULIN LISPRO 100 UNIT/1 ML 3ML VIAL SQ SCH ×3 (12:07→21:50)
[2022-04-08 12:55] LABS: MAGNESIUM 1.8 MG/DL (1.3-2.1)
[2022-04-08 13:14] LABS: THYROID STIMULATING HORMONE 0.763 uIU/mL (0.350-4.940)
[2022-04-08] MEDS ORDERED: POTASSIUM CHLORIDE 10MEQ EA PO ONE (18:40)
[2022-04-09] VITALS (7 sets, daily range): BP systolic 106–132; BP diastolic 48–68
[2022-04-09 06:32] LABS: ANION GAP 18.3 mmol/L (8-16); CREATININE, SERUM 4.82 mg/dL (0.72-1.25); POTASSIUM 3.3 mmol/L (3.5-5.1)
[2022-04-09] MEDS: INSULIN LISPRO 100 UNIT/1 ML 3ML VIAL SQ SCH ×4 (07:30→21:00)
[2022-04-09] MEDS: COLLAGENASE 5 GM TUBE TP SCH (09:18)
[2022-04-09] MEDS: BALSAM PERU/CASTOR OIL 60 GM OINT...G. TP SCH (09:18)
[2022-04-09] MEDS ORDERED: SODIUM CHLORIDE 0.9% 1000ML 2,000 ML ONE (15:45)
[2022-04-09] MEDS ORDERED: SODIUM CHLORIDE 0.9% 1000ML 2,000 ML IV PRN (16:00)
[2022-04-09] MEDS ORDERED: HEPARIN SOD (PORCINE) 1000 UNIT/ML SDV IV PRN (16:00)
[2022-04-09] MEDS: MEGESTROL ACETATE 40 MG TAB PO SCH (17:00)
[2022-04-09] MEDS: MIRTAZAPINE 15 MG TAB PO SCH (21:10)
[2022-04-10] VITALS (8 sets, daily range): BP systolic 110–127; BP diastolic 53–68
[2022-04-10] MEDS: INSULIN LISPRO 100 UNIT/1 ML 3ML VIAL SQ SCH ×4 (07:30→21:00)
[2022-04-10] MEDS: COLLAGENASE 5 GM TUBE TP SCH (08:49)
[2022-04-10] MEDS: BALSAM PERU/CASTOR OIL 60 GM OINT...G. TP SCH (08:49)
[2022-04-10] MEDS: MEGESTROL ACETATE 40 MG TAB PO SCH ×2 (08:49→16:52)
[2022-04-10] MEDS: MIRTAZAPINE 15 MG TAB PO SCH (21:32)
[2022-04-11] VITALS (8 sets, daily range): BP systolic 128–142; BP diastolic 58–81
[2022-04-11 06:40] LABS: ANION GAP 22.3 mmol/L (8-16); CALCIUM 7.9 mg/dL (8.4-10.2); CREATININE, SERUM 4.54 mg/dL (0.72-1.25); POTASSIUM 3.3 mmol/L (3.5-5.1)
[2022-04-11] MEDS: MEGESTROL ACETATE 40 MG TAB PO SCH ×2 (08:46→16:18)
[2022-04-11] MEDS: INSULIN LISPRO 100 UNIT/1 ML 3ML VIAL SQ SCH ×4 (08:50→21:00)
[2022-04-11] MEDS: COLLAGENASE 5 GM TUBE TP SCH (09:00)
[2022-04-11] MEDS: BALSAM PERU/CASTOR OIL 60 GM OINT...G. TP SCH (09:00)
[2022-04-11] MEDS: MIRTAZAPINE 15 MG TAB PO SCH (21:00)
[2022-04-12 06:37] VITALS: BP 139/72
[2022-04-12] MEDS: INSULIN LISPRO 100 UNIT/1 ML 3ML VIAL SQ SCH ×4 (08:21→21:00)
[2022-04-12 08:29] VITALS: BP 114/53
[2022-04-12] MEDS: MEGESTROL ACETATE 40 MG TAB PO SCH ×2 (09:10→16:36)
[2022-04-12 09:13] VITALS: BP 114/53
[2022-04-12] MEDS ORDERED: SODIUM CHLORIDE 0.9% 250ML 250 ML IV ONE (09:30)
[2022-04-12] MEDS ORDERED: EPOETIN ALFA-EPBX 10,000 UNIT/ML VIAL SC ONE (10:30)
[2022-04-12 11:44] LABS: BASOPHILS % 0.4 % (0.0-1.0); EOSINOPHILS # (AUTO) 0.1 (0.0-0.4); EOSINOPHILS % 0.6 % (0.0-6.0); HEMOGLOBIN 8.6 g/dL (14.0-18.0); LYMPHOCYTES # (AUTO) 0.8 (1.0-3.2); LYMPHOCYTES % 7.9 % (18.0-39.1); MEAN CORPUSCULAR HEMOGLOBIN 25.6 pg (28-32); MEAN CORPUSCULAR HGB CONC 29.7 g/dL (31-35); MEAN CORPUSCULAR VOLUME 86.3 fL (81-99); MONOCYTES # (AUTO) 0.7 (0.2-0.8); MONOCYTES % 6.8 % (4.4-11.3); NEUTROPHILS # (AUTO) 8.4 (2.1-6.9); NEUTROPHILS % 83.2 % (38.7-80.0); PLATELET COUNT 415 x10e3/uL (140-360); RED BLOOD COUNT 3.36 x10e6/uL (4.3-5.7); RED CELL DISTRIBUTION WIDTH 18.9 % (11.7-14.4)
[2022-04-12 11:50] VITALS: BP 122/63
[2022-04-12] MEDS: COLLAGENASE 5 GM TUBE TP SCH (12:10)
[2022-04-12] MEDS: BALSAM PERU/CASTOR OIL 60 GM OINT...G. TP SCH (12:10)
[2022-04-12] MEDS: IRON SUCROSE 100 MG in SODIUM CHLORIDE 0.9% 100 ML IV SCH (12:26)
[2022-04-12 15:36] VITALS: BP 135/63
[2022-04-12 20:00] VITALS: BP 141/64
[2022-04-12] MEDS: MIRTAZAPINE 15 MG TAB PO SCH (21:00)
[2022-04-13 06:01] LABS: BASOPHILS # (AUTO) 0.1 (0.0-0.1); BASOPHILS % 0.7 % (0.0-1.0); EOSINOPHILS # (AUTO) 0.1 (0.0-0.4); EOSINOPHILS % 1.3 % (0.0-6.0); HEMATOCRIT 28.6 % (38.2-49.6); HEMOGLOBIN 7.7 g/dL (14.0-18.0); LYMPHOCYTES # (AUTO) 0.8 (1.0-3.2); LYMPHOCYTES % 11.3 % (18.0-39.1); MEAN CORPUSCULAR HEMOGLOBIN 25.2 pg (28-32); MEAN CORPUSCULAR HGB CONC 26.9 g/dL (31-35); MEAN CORPUSCULAR VOLUME 93.5 fL (81-99); MONOCYTES # (AUTO) 0.7 (0.2-0.8); MONOCYTES % 10.4 % (4.4-11.3); NEUTROPHILS # (AUTO) 5.3 (2.1-6.9); PLATELET COUNT 322 x10e3/uL (140-360); RED BLOOD COUNT 3.06 x10e6/uL (4.3-5.7); RED CELL DISTRIBUTION WIDTH 19.9 % (11.7-14.4)
[2022-04-13 06:20] LABS: ANION GAP 19.5 mmol/L (8-16); CALCIUM 7.8 mg/dL (8.4-10.2); CREATININE, SERUM 3.84 mg/dL (0.72-1.25); POTASSIUM 3.5 mmol/L (3.5-5.1)
[2022-04-13] MEDS: MEGESTROL ACETATE 40 MG TAB PO SCH ×2 (08:41→17:00)
[2022-04-13] MEDS: BALSAM PERU/CASTOR OIL 60 GM OINT...G. TP SCH (08:41)
[2022-04-13] MEDS: COLLAGENASE 5 GM TUBE TP SCH (08:41)
[2022-04-13] MEDS: INSULIN LISPRO 100 UNIT/1 ML 3ML VIAL SQ SCH ×4 (08:42→21:00)
[2022-04-13 08:52] VITALS: BP 125/59
[2022-04-13 09:19] LABS: ANISOCYTOSIS MODERATE; OVALOCYTES FEW; PLATELET ESTIMATE ADEQUATE; PLATELET MORPHOLOGY COMMENT NORMAL; RBC MORPHOLOGY COMMENT ABNORMAL
[2022-04-13 09:20] LABS: HYPOCHROMASIA SLIGHT
[2022-04-13] MEDS: IRON SUCROSE 100 MG in SODIUM CHLORIDE 0.9% 100 ML IV SCH (10:30)
[2022-04-13 12:27] VITALS: BP 141/65
[2022-04-13] MEDS ORDERED: SODIUM CHLORIDE 0.9% 250ML 250 ML ONE (15:50)
[2022-04-13 16:43] VITALS: BP 133/71
[2022-04-13 20:00] VITALS: BP 139/72
[2022-04-13 21:00] VITALS: BP 139/72
[2022-04-13] MEDS: MIRTAZAPINE 15 MG TAB PO SCH (21:24)
[2022-04-14] VITALS (7 sets, daily range): BP systolic 120–146; BP diastolic 58–85
[2022-04-14 05:56] LABS: BASOPHILS # (AUTO) 0.1 (0.0-0.1); BASOPHILS % 0.7 % (0.0-1.0); EOSINOPHILS # (AUTO) 0.2 (0.0-0.4); EOSINOPHILS % 2.8 % (0.0-6.0); HEMATOCRIT 31.4 % (38.2-49.6); LYMPHOCYTES # (AUTO) 0.8 (1.0-3.2); LYMPHOCYTES % 12.3 % (18.0-39.1); MEAN CORPUSCULAR HEMOGLOBIN 25.5 pg (28-32); MEAN CORPUSCULAR HGB CONC 28.7 g/dL (31-35); MONOCYTES # (AUTO) 0.7 (0.2-0.8); MONOCYTES % 10.4 % (4.4-11.3); NEUTROPHILS % 72.6 % (38.7-80.0); PLATELET COUNT 310 x10e3/uL (140-360); RED BLOOD COUNT 3.53 x10e6/uL (4.3-5.7)
[2022-04-14] MEDS: INSULIN LISPRO 100 UNIT/1 ML 3ML VIAL SQ SCH ×4 (07:30→21:00)
[2022-04-14] MEDS: COLLAGENASE 5 GM TUBE TP SCH (09:25)
[2022-04-14] MEDS: BALSAM PERU/CASTOR OIL 60 GM OINT...G. TP SCH (09:25)
[2022-04-14] MEDS: MEGESTROL ACETATE 40 MG TAB PO SCH ×2 (09:26→17:17)
[2022-04-14 09:38] LABS: BAND NEUTROPHILS % (MANUAL) 1 %; EOSINOPHILS % (MANUAL) 2 % (0-7); LYMPHOCYTES % (MANUAL) 13 % (19-48); MONOCYTES % (MANUAL) 6 % (3.4-9.0); NEUTROPHILS % (MANUAL) 78 % (40-74); PLATELET ESTIMATE ADEQUATE; PLATELET MORPHOLOGY COMMENT NORMAL; RBC MORPHOLOGY COMMENT NORMAL
[2022-04-14 09:39] LABS: ANISOCYTOSIS SLIGHT
[2022-04-14] MEDS: IRON SUCROSE 100 MG in SODIUM CHLORIDE 0.9% 100 ML IV SCH (10:30)
[2022-04-14] MEDS ORDERED: ONDANSETRON HCL 4 MG ORAL DISINTEGRATING TAB PO PRN (11:15)
[2022-04-14] MEDS ORDERED: EPOETIN ALFA-EPBX 10,000 UNIT/ML VIAL SC SCH (16:15)
[2022-04-14] MEDS: HYDRALAZINE HCL 25 MG TAB PO SCH (17:17)
[2022-04-14] MEDS: GLIPIZIDE 5 MG TAB PO SCH (17:17)
[2022-04-14] MEDS: TELMISARTAN 40 MG TAB PO SCH (18:13)
[2022-04-14] MEDS: MIRTAZAPINE 15 MG TAB PO SCH (22:57)
[2022-04-15] VITALS (11 sets, daily range): BP systolic 113–155; BP diastolic 53–82
[2022-04-15 06:30] LABS: ANION GAP 16.7 mmol/L (8-16); CALCIUM 8.1 mg/dL (8.4-10.2); CREATININE, SERUM 3.73 mg/dL (0.72-1.25); POTASSIUM 3.7 mmol/L (3.5-5.1)
[2022-04-15] MEDS: INSULIN LISPRO 100 UNIT/1 ML 3ML VIAL SQ SCH ×4 (07:30→21:00)
[2022-04-15] MEDS: GLIPIZIDE 5 MG TAB PO SCH ×2 (07:30→16:30)
[2022-04-15] MEDS: SEVELAMER CARBONATE 800 MG TAB PO SCH (08:00)
[2022-04-15] MEDS: MEGESTROL ACETATE 40 MG TAB PO SCH ×2 (08:39→16:29)
[2022-04-15] MEDS: OMEGA 3 POLYUNSAT FATTY ACIDS 1000 MG SOFTGEL PO SCH (08:39)
[2022-04-15] MEDS: CALCITRIOL 0.25 MCG CAP PO SCH (08:41)
[2022-04-15] MEDS: ALLOPURINOL 100 MG TAB PO SCH (08:41)
[2022-04-15] MEDS: TELMISARTAN 40 MG TAB PO SCH ×2 (09:00→16:30)
[2022-04-15] MEDS: COLLAGENASE 5 GM TUBE TP SCH (09:00)
[2022-04-15] MEDS: AMLODIPINE BESYLATE 10 MG TAB PO SCH (09:00)
[2022-04-15] MEDS: HYDRALAZINE HCL 25 MG TAB PO SCH ×2 (09:00→17:00)
[2022-04-15] MEDS: BALSAM PERU/CASTOR OIL 60 GM OINT...G. TP SCH (09:00)
[2022-04-15] MEDS: IRON SUCROSE 100 MG in SODIUM CHLORIDE 0.9% 100 ML IV SCH (10:30)
[2022-04-15 11:44] LABS: INR 1.11; PROTHROMBIN TIME 15.3 seconds (11.9-14.5)
[2022-04-15 13:36] LABS: BODY FLUID TYPE PERICARDIAL
[2022-04-15 13:37] LABS: BODY FLUID APPEARANCE CLOUDY; BODY FLUID COLOR YELLOW
[2022-04-15 13:38] LABS: WBC,BODY FLUID 85 cells/uL
[2022-04-15 13:39] LABS: RBC,BODY FLUID 13 cells/uL
[2022-04-15 13:44] LABS: LYMPHOCYTES,BODY FLUID 49 %; MONO/MACROPHG,BODY FLUID 37 %; NEUTROPHILS,BODY FLUID 2 %; OTHER CELLS,BODY FLUID 12 %
[2022-04-15] MEDS ORDERED: HEPARIN SOD/SOD CHLORIDE 2,000 ML ONE (13:48)
[2022-04-15] MEDS ORDERED: FENTANYL CITRATE/PF 100MCG/2 ML INJ ONE (13:48)
[2022-04-15] MEDS ORDERED: MIDAZOLAM HCL 2 MG/2 ML VIAL ONE (13:48)
[2022-04-15] MEDS ORDERED: IOPAMIDOL 370 MG/ML 100 ML INFUS..BTL INJ ONE (13:49)
[2022-04-15] MEDS ORDERED: SODIUM CHLORIDE 0.9% 1000ML 1,000 ML ONE (13:49)
[2022-04-15] MEDS ORDERED: LIDOCAINE 1% 10 ML MULTIDOSE VIAL IJ ONE (13:49)
[2022-04-15] MEDS: MIRTAZAPINE 15 MG TAB PO SCH (21:17)
[2022-04-16] VITALS: BP 121/52
[2022-04-16 04:00] VITALS: BP 143/79
[2022-04-16 06:51] LABS: ANION GAP 14.8 mmol/L (8-16); CREATININE, SERUM 4.1 mg/dL (0.72-1.25); POTASSIUM 3.8 mmol/L (3.5-5.1)
[2022-04-16] MEDS: INSULIN LISPRO 100 UNIT/1 ML 3ML VIAL SQ SCH ×2 (07:30→11:30)
[2022-04-16 08:47] VITALS: BP 138/70
[2022-04-16] MEDS: OMEGA 3 POLYUNSAT FATTY ACIDS 1000 MG SOFTGEL PO SCH (08:52)
[2022-04-16] MEDS: CALCITRIOL 0.25 MCG CAP PO SCH (08:52)
[2022-04-16] MEDS: HYDRALAZINE HCL 25 MG TAB PO SCH (08:54)
[2022-04-16] MEDS: AMLODIPINE BESYLATE 10 MG TAB PO SCH (08:55)
[2022-04-16] MEDS: SEVELAMER CARBONATE 800 MG TAB PO SCH (09:00)
[2022-04-16] MEDS: GLIPIZIDE 5 MG TAB PO SCH (09:00)
[2022-04-16] MEDS: MEGESTROL ACETATE 40 MG TAB PO SCH (09:00)
[2022-04-16] MEDS: TELMISARTAN 40 MG TAB PO SCH (09:00)
[2022-04-16] MEDS: ALLOPURINOL 100 MG TAB PO SCH (09:00)
[2022-04-16 11:23] LABS: % IRON SATURATION 16 % (15-50); IRON 26 ug/dL (65-175); TOTAL IRON BINDING CAPACITY 158 ug/dL (261-478); TRANSFERRIN 113 mg/dL (174-364)
[2022-04-16 11:45] VITALS: BP 153/71
[2022-04-16] MEDS ORDERED: ALBUMIN 25% 12.5GM 0.25 GM/ML BTL IV PRN (15:45)
[2022-04-16] MEDS ORDERED: HEPARIN SOD (PORCINE) 1000 UNIT/ML SDV IV PRN (15:45)
[2022-04-16] MEDS: COLLAGENASE 5 GM TUBE TP SCH (15:51)
[2022-04-16] MEDS: BALSAM PERU/CASTOR OIL 60 GM OINT...G. TP SCH (15:51)
[2022-04-16 16:12] VITALS: BP 100/47
[2022-04-16] MEDS ORDERED: Vancomycin IV 1 GM in SODIUM CHLORIDE 0.9% 250ML 250 ML IV SCH (17:00)
== END 2022-04-16 18:26 | disposition short-term general hospital (02) | DRG 286 ==
LOC: ER 12:04 → ERHOLD 12:48 → MED/SURG2 20:57
PROVIDERS: ADMIT Internal Medicine; ATTEND Internal Medicine
PROC: 5A1D70Z Performance of Urinary Filtration, Intermittent, Less than 6 Hours Per Day (ICD-10-PCS; 2022-04-09)
PROC: 30233N1 Transfusion of Nonautologous Red Blood Cells into Peripheral Vein, Percutaneous Approach (ICD-10-PCS; 2022-04-13)
PROC: 4A023N7 Measurement of Cardiac Sampling and Pressure, Left Heart, Percutaneous Approach (ICD-10-PCS; principal; 2022-04-15)
PROC: B2111ZZ Fluoroscopy of Multiple Coronary Arteries using Low Osmolar Contrast (ICD-10-PCS; 2022-04-15)
PROC: B2151ZZ Fluoroscopy of Left Heart using Low Osmolar Contrast (ICD-10-PCS; 2022-04-15)
PROC: B41D1ZZ Fluoroscopy of Aorta and Bilateral Lower Extremity Arteries using Low Osmolar Contrast (ICD-10-PCS; 2022-04-15)
PROC: 0W993ZZ Drainage of Right Pleural Cavity, Percutaneous Approach (ICD-10-PCS; 2022-04-15)
DX: I13.2 Hypertensive heart and chronic kidney disease with heart failure and with stage 5 chronic kidney disease, or end stage renal disease (principal); I50.33 Acute on chronic diastolic (congestive) heart failure; N18.6 End stage renal disease; E44.1 Mild protein-calorie malnutrition; L03.115 Cellulitis of right lower limb; N17.9 Acute kidney failure, unspecified; E11.51 Type 2 diabetes mellitus with diabetic peripheral angiopathy without gangrene; E11.621 Type 2 diabetes mellitus with foot ulcer; E11.22 Type 2 diabetes mellitus with diabetic chronic kidney disease; E11.65 Type 2 diabetes mellitus with hyperglycemia; I27.22 Pulmonary hypertension due to left heart disease; E11.42 Type 2 diabetes mellitus with diabetic polyneuropathy; E66.9 Obesity, unspecified; D64.9 Anemia, unspecified; Z99.2 Dependence on renal dialysis; Z98.890 Other specified postprocedural states; Z68.24 Body mass index [BMI] 24.0-24.9, adult; E78.5 Hyperlipidemia, unspecified; I25.5 Ischemic cardiomyopathy; I25.118 Atherosclerotic heart disease of native coronary artery with other forms of angina pectoris; I70.293 Other atherosclerosis of native arteries of extremities, bilateral legs; E86.0 Dehydration; Z86.16 Personal history of COVID-19; Z79.84 Long term (current) use of oral hypoglycemic drugs; L97.511 Non-pressure chronic ulcer of other part of right foot limited to breakdown of skin; E87.6 Hypokalemia; B96.5 Pseudomonas (aeruginosa) (mallei) (pseudomallei) as the cause of diseases classified elsewhere; B95.62 Methicillin resistant Staphylococcus aureus infection as the cause of diseases classified elsewhere; Z20.822 Contact with and (suspected) exposure to COVID-19
CPT/HCPCS: 0223U; 32555; 36415; 70490; 71045; 71046; 71250; 74470; 75630; 76937; 80048; 80053; 82948; 83036; 83540; 83615; 83735; 84157; 84443; 84466; 85025; 85610; 86706; 86850; 86900; 86920; 87071; 87186; 87205; 87340; 89051; 93306; 93458; 94799; 99152; 99153; 99251; 99284; C1760; C1766; C1769; C1887; C1894; J0690; J1644; J1756; J2250; J3010; J7030; J7050; P9016; Q9967

== ENCOUNTER 2022-10-11 09:26 | Emergency (ER) | payer MEDICARE ==
[~2022-10-11] VITALS: Ht 172.7 cm; Wt 72.6 kg
[2022-10-11] MEDS ORDERED: CEFEPIME 2 GM in SODIUM CHLORIDE 0.9% 100 ML IV STA (09:40)
[2022-10-11] MEDS ORDERED: SUCCINYLCHOLINE 200 MG/10 ML SYR IV STA (09:43)
[2022-10-11] MEDS ORDERED: ETOMIDATE 2 MG/ML 10 ML INJ IV STA (09:43)
[2022-10-11] MEDS ORDERED: Vancomycin IV 1 GM in SODIUM CHLORIDE 0.9% 250ML 250 ML IV SCH (09:45)
[2022-10-11] MEDS ORDERED: SODIUM CHLORIDE 0.9% 1000ML 2,400 ML IV SCH (09:45)
[2022-10-11] MEDS ORDERED: LACTATED RINGER'S 1,000 ML ONE (09:59)
[2022-10-11] MEDS ORDERED: PROPOFOL IV EMULSION 50 ML IV ONE (10:13)
[2022-10-11 10:26] LABS: BASOPHILS % 0.1 % (0.0-1.0); HEMATOCRIT 29.4 % (38.2-49.6); HEMOGLOBIN 9.2 g/dL (14.0-18.0); LYMPHOCYTES # (AUTO) 0.5 (1.0-3.2); LYMPHOCYTES % 2.4 % (18.0-39.1); MEAN CORPUSCULAR HEMOGLOBIN 30.9 pg (28-32); MEAN CORPUSCULAR HGB CONC 31.3 g/dL (31-35); MEAN CORPUSCULAR VOLUME 98.7 fL (81-99); MONOCYTES % 5.1 % (4.4-11.3); NEUTROPHILS # (AUTO) 16.9 (2.1-6.9); NEUTROPHILS % 90.4 % (38.7-80.0); PLATELET COUNT 304 x10e3/uL (140-360); RED BLOOD COUNT 2.98 x10e6/uL (4.3-5.7); RED CELL DISTRIBUTION WIDTH 17.4 % (11.7-14.4)
[2022-10-11 10:38] LABS: INR 1.21; PROTHROMBIN TIME 15.8 seconds (11.9-14.5)
[2022-10-11 10:40] LABS: PARTIAL THROMBOPLASTIN TIME 50.7 seconds (23.8-35.5)
[2022-10-11 10:58] LABS: ALBUMIN 1.6 g/dL (3.5-5.0); ALBUMIN/GLOBULIN RATIO 0.3 (0.8-2.0); ANION GAP 20.8 mmol/L (8-16); CALCIUM 9.8 mg/dL (8.4-10.2); CREATININE, SERUM 6.14 mg/dL (0.72-1.25); POTASSIUM 4.8 mmol/L (3.5-5.1)
[2022-10-11 11:09] LABS: CLARITY,URINE SL CLOUDY (CLEAR); COLOR,URINE YELLOW (YELLOW); LEUKOCYTE ESTERASE ,URINE TRACE (NEGATIVE); NITRITE,URINE NEGATIVE (NEGATIVE); PROTEIN,URINE DIPSTICK >=300 (NEGATIVE)
[2022-10-11 11:10] LABS: KETONES,URINE NEGATIVE (NEGATIVE); URINE UROBILINOGEN 0.2 mg/dL (0.2 - 1)
[2022-10-11 11:12] LABS: ABG HCO3 26 mmol/L (22-26); ABG PCO2 42 mmHg (35-45); ABG PO2 153 mmHg (80-105); ABG TCO2 27
[2022-10-11 11:16] LABS: BACTERIA,URINE MODERATE /HPF; EPITHELIAL CELLS,URINE FEW /LPF; WBC,URINE (MAN) >50 /HPF (0-5)
[2022-10-11] MEDS ORDERED: SUCCINYLCHOLINE CHLORIDE 20 MG/ML 10ML VIAL ONE (12:47)
[2022-10-11] MEDS ORDERED: ETOMIDATE 2 MG/ML 10 ML INJ IV ONE (12:47)
== END 2022-10-11 15:55 | disposition short-term general hospital (02) ==
LOC: ER 09:44
DX: R65.20 Severe sepsis without septic shock (principal); N39.0 Urinary tract infection, site not specified; J18.9 Pneumonia, unspecified organism; Y95 Nosocomial condition; E11.22 Type 2 diabetes mellitus with diabetic chronic kidney disease; N18.6 End stage renal disease; Z99.2 Dependence on renal dialysis; I25.10 Atherosclerotic heart disease of native coronary artery without angina pectoris; Z20.822 Contact with and (suspected) exposure to COVID-19; Z79.84 Long term (current) use of oral hypoglycemic drugs; Z79.899 Other long term (current) drug therapy
CPT/HCPCS: 31500 ×2; 36415; 36600; 51700; 71045; 74018; 80053; 81001; 82805; 83605; 85025; 85610; 85730; 87040; 87071; 87086; 87205; 94003; 94799; 99285; J0330; J0692; J2704; J3370; J7030; J7050 ×2; J7121; U0002